=== PATIENT | female | born 1965 | race Caucasian/White ===

== ENCOUNTER 2020-02-12 22:14 | Emergency (ER) | payer MEDICAID ==
[2020-02-12] MEDS ORDERED: Sodium Chloride 0.9% 2.5 ML Syringe FLUSH PRN (23:03)
[2020-02-12] MEDS ORDERED: Sodium Chloride 0.9% 10 ML Syringe FLUSH PRN (23:03)
[2020-02-12] MEDS ORDERED: Morphine 4 MG/ML Syringe IVPUSH ONE (23:04)
[2020-02-12] MEDS ORDERED: Ondansetron 4 MG/2 ML SDV IVPUSH ONE (23:04)
--- NOTE | 2020-02-12 23:23 | EDM.PDOC ---
ED HPI GENERAL MEDICAL PROBLEM - General Chief Complaint: Abdominal Pain Stated Complaint: SICK Time Seen by Provider: 02/12/20 22:36 - History of Present Illness INITIAL COMMENTS - FREE TEXT/NARRATIVE: 54-year-old female presenting with 3 weeks of postprandial epigastric and left upper quadrant abdominal pain. It is associated with nausea and seems to occur within 30 minutes of eating. She is having a particularly bad episode at this time and rates the discomfort as 10 out of 10. She states that tonight there was a birthday alliance party and she had several pieces of pizza. She denies change in bowel habit she denies fevers or chills she denies pain in her back. She denies dysuria or hematuria. She reports prior and hysterectomy but denies any other abdominal surgery the pain is associated with nausea but she has had no emesis. Patient reports approximately 3 weeks of symptoms always after eating. Left Abdomen Pain Score (Numeric/FACES): 5 - Related Data Allergies Allergy/AdvReac Type Severity Reaction Status Date / Time No Known Allergies Allergy Verified 02/12/20 22:39 Home Meds: Home Meds Omeprazole 20 mg PO DAILY 14 Days #14 capsule. 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: Musculoskeletal History: Reports: None Neurological History: Reports: None Psychiatric History: Reports: None Endocrine/Metabolic History: Reports: None Hematologic History: Reports: None Oncologic (Cancer) History: Reports: None Dermatologic History: Reports: None - Infectious Disease History Infectious Disease History: Reports: Chicken Pox, Mumps - Past Surgical History Head Surgeries/Procedures: Reports: None Female Surgical History: Reports: Hysterectomy Other Female Surgeries/Procedures: Hysterectomy at age 27 Social & Family History - Tobacco Use Tobacco Use Status *Q: Current Every Day Tobacco User Years of Tobacco use: 40 Packs/Tins Daily: 0.5 - Caffeine Use Caffeine Use: Reports: Coffee, Energy Drinks - Recreational Drug Use Recreational Drug Use: No ED ROS GENERAL - Review of Systems Review Of Systems: See Below Free Text/Narrative/Comment: General: No fever. Skin: No rash. Eyes: No vision problems. ENT: No sore throat. Neck: No neck stiffness. Respiratory: No shortness of breath. Cardiac: No chest pain. Gastrointestinal: Per HPI Urinary: No dysuria. Musculoskeletal: No myalgias/arthralgias. Neurologic: No headache. ED EXAM, GENERAL - Physical Exam Exam: See Below Free Text/Narrative:: General Appearance: No acute distress, appears comfortable Skin: No rash HEENT: Normocephalic/atraumatic, sclera anicteric, mucous membranes moist Neck: Normal range of motion Chest and Lungs: Bilateral breath sounds, clear to auscultation Cardiovascular: Regular rate and rhythm, no murmur Abdomen: Bilateral upper quadrant tenderness without guarding or rebound Back: Normal Musculoskeletal: No edema or tenderness Neurologic: Awake, alert, no obvious deficits, moving all extremities Psychiatric: Appropriate, cooperative Course - Vital Signs Last Recorded V/S: Last Vital Signs Temp 96.5 F L 02/12/20 22:39 Pulse 86 02/12/20 22:39 Resp 20 02/12/20 22:39 BP 135/69 02/12/20 22:39 Pulse Ox 97 02/12/20 22:39 - Orders/Labs/Meds Orders: Active Orders 24 hr Category Date Time Status Sodium Chloride 0.9% [Normal Saline] 1,000 ml Med 02/13/20 00:00 Active IV .Bolus Sodium Chloride 0.9% [Saline Flush] Med 02/12/20 23:03 Active 10 ml FLUSH ASDIRECTED PRN Sodium Chloride 0.9% [Saline Flush] Med 02/12/20 23:03 Active 2.5 ml FLUSH ASDIRECTED PRN Saline Lock Insert [OM.PC] Stat Oth 02/12/20 23:03 Ordered Medication Orders Sodium Chloride (Normal Saline) 1,000 mls @ 999 mls/hr IV .Bolus ONE Stop: 02/13/20 01:00 Sodium Chloride (Saline Flush) 10 ml FLUSH ASDIRECTED PRN PRN Reason: Keep Vein Open Sodium Chloride (Saline Flush) 2.5 ml FLUSH ASDIRECTED PRN PRN Reason: Keep Vein Open Labs: Laboratory Tests 02/12/20 02/12/20 Range/Units 23:10 23:10 WBC 11.63 H (4.0-11.0) K/uL RBC 4.48 (4.30-5.90) M/uL Hgb 13.0 (12.0-16.0) g/dL Hct 40.3 (36.0-46.0) % MCV 90.0 (80.0-98.0) fL MCH 29.0 (27.0-32.0) pg MCHC 32.3 (31.0-37.0) g/dL RDW Std Deviation 46.0 (28.0-62.0) fl RDW Coeff of Marcelle 14 (11.0-15.0) % Plt Count 286 (150-400) K/uL MPV 9.10 (7.40-12.00) fL Neut % (Auto) 56.5 (48.0-80.0) % Lymph % (Auto) 32.2 (16.0-40.0) % [place] % (Auto) 7.5 (0.0-15.0) % Eos % (Auto) 3.5 (0.0-7.0) % Baso % (Auto) 0.3 (0.0-1.5) % Neut # (Auto) 6.6 H (1.4-5.7) K/uL Lymph # (Auto) 3.8 H (0.6-2.4) K/uL [place] # (Auto) 0.9 H (0.0-0.8) K/uL Eos # (Auto) 0.4 (0.0-0.7) K/uL Baso # (Auto) 0.0 (0.0-0.1) K/uL Nucleated RBC % 0.0 /100WBC Nucleated RBCs # 0 K/uL Sodium 131 L (136-145) mmol/L Potassium 3.4 L (3.5-5.1) mmol/L Chloride 104 (98-107) mmol/L Carbon Dioxide 26.4 (21.0-32.0) mmol/L BUN 21 H (7.0-18.0) mg/dL Creatinine 0.7 (0.6-1.0) mg/dL Est Cr Clr Drug Dosing 66.76 mL/min Estimated GFR (MDRD) > 60.0 ml/min Glucose 116 H (74-106) mg/dL Calcium 9.1 (8.5-10.1) mg/dL Total Bilirubin 0.1 L (0.2-1.0) mg/dL AST 14 L (15-37) IU/L ALT 30 (14-63) IU/L Alkaline Phosphatase 61 (46-116) U/L Total Protein 6.9 (6.4-8.2) g/dL Albumin 3.5 (3.4-5.0) g/dL Globulin 3.4 (2.6-4.0) g/dL Albumin/Globulin Ratio 1.0 (0.9-1.6) Lipase 241 (73-393) U/L Meds: Medications Generic Name Dose Route Start Last Admin Trade Name Freq PRN Reason Stop Dose Admin Sodium Chloride 1,000 mls @ 999 mls/hr 02/13/20 00:00 Normal Saline IV 02/13/20 01:00 .Bolus ONE Sodium Chloride 10 ml 02/12/20 23:03 Saline Flush FLUSH ASDIRECTED PRN Keep Vein Open Sodium Chloride 2.5 ml 02/12/20 23:03 Saline Flush FLUSH ASDIRECTED PRN Keep Vein Open Discontinued Medications Generic Name Dose Route Start Last Admin Trade Name Freq PRN Reason Stop Dose Admin Al Hydroxide/Mg Hydroxide 15 0 ml 02/13/20 00:22 ml/ Lidocaine HCl 5 ml PO 02/13/20 00:23 ONETIME ONE Morphine Sulfate 4 mg 02/12/20 23:04 02/12/20 23:19 Morphine IVPUSH 02/12/20 23:05 4 mg ONETIME ONE Administration Ondansetron HCl 4 mg 02/12/20 23:04 02/12/20 23:19 Zofran IVPUSH 02/12/20 23:05 4 mg ONETIME ONE Administration Departure - Departure Time of Disposition: 00:28 Disposition: Home, Self-Care 01 Condition: Good Clinical Impression: Gastritis - Discharge Information *PRESCRIPTION DRUG MONITORING PROGRAM REVIEWED*: Not Applicable *COPY OF PRESCRIPTION DRUG MONITORING REPORT IN PATIENT VIOLETTE: Not Applicable Prescriptions: Sucralfate [Carafate] 1 gm PO TID 7 Days #42 tablet Omeprazole 20 mg PO DAILY 14 Days #14 capsule. Instructions: Gastritis, Adult, [id number] Referrals: [facility] [Outside] - 1 Week Forms: ED Department Discharge Additional Instructions: I encourage you to follow-up with the [facility] to establish primary care and for follow-up of your abdominal pain. The following information is given to patients seen in the emergency department who are being discharged to home. This information is to outline your options for follow-up care. We provide all patients seen in our emergency department with a follow-up referral. The need for follow-up, as well as the timing and circumstances, are variable depending upon the specifics of your emergency department visit. If you don't have a primary care physician on staff, we will provide you with a referral. We always advise you to contact your personal physician following an emergency department visit to inform them of the circumstance of the visit and for follow-up with them and/or the need for any referrals to a consulting specialist. The emergency department will also refer you to a specialist when appropriate. This referral assures that you have the opportunity for follow-up care with a specialist. All of these measure are taken in an effort to provide you with optimal care, which includes your follow-up. Under all circumstances we always encourage you to contact your private physician who remains a resource for coordinating your care. When calling for follow-up care, please make the office aware that this follow-up is from your recent emergency room visit. If for any reason you are refused follow-up, please contact the [facility] Emergency Department at and asked to speak to the emergency department charge nurse. Sepsis Event Note (ED) - Evaluation Sepsis Screening Result: No Definite Risk - Focused Exam Vital Signs: Vital Signs Temp Pulse Resp BP Pulse Ox 02/12/20 22:39 96.5 F L 86 20 135/69 97 - My Orders Last 24 Hours: My Active Orders 02/12/20 23:03 Sodium Chloride 0.9% [Saline Flush] 10 ml FLUSH ASDIRECTED PRN Sodium Chloride 0.9% [Saline Flush] 2.5 ml FLUSH ASDIRECTED PRN Saline Lock Insert [OM.PC] Stat 02/13/20 00:00 Sodium Chloride 0.9% [Normal Saline] 1,000 ml IV .Bolus - Assessment/Plan Last 24 Hours: My Active Orders 02/12/20 23:03 Sodium Chloride 0.9% [Saline Flush] 10 ml FLUSH ASDIRECTED PRN Sodium Chloride 0.9% [Saline Flush] 2.5 ml FLUSH ASDIRECTED PRN Saline Lock Insert [OM.PC] Stat 02/13/20 00:00 Sodium Chloride 0.9% [Normal Saline] 1,000 ml IV .Bolus Assessment:: 54-year-old female presenting with signs and symptoms most consistent with cholelithiasis versus choledocho lithiasis versus acute cholecystitis. Pancreatitis considered as well but felt less likely peptic ulcer disease also possible but given the worsening after fatty meals would favor biliary pathology. However if biliary work-up is negative then would treat for gastritis/PUD. ACS carefully considered but there is no chest pain with this the pain is nonexertional and I do not have a concern for ACS nor PE. Inferior pulmonary process possible I think is unlikely but chest x-ray ordered to help exclude this. Morphine Zofran for symptoms and will reassess. 0030: Patient's labs are notable only for minimal hyponatremia. Renal function is good patient's ultrasound is normal chest x-ray normal. Given this I would favor gastritis. Patient given a GI cocktail here discharge on 2 weeks of omeprazole and Carafate patient will follow up with primary care clinic.
[2020-02-12 23:35] LABS: BLOOD UREA NITROGEN,BUN 21 mg/dL (7.0-18.0); CARBON DIOXIDE,CO2 26.4 mmol/L (21.0-32.0); CHLORIDE,CL 104 mmol/L (98-107); GLUCOSE RANDOM 116 mg/dL (74-106); LIPASE 241 U/L (73-393); POTASSIUM,K 3.4 mmol/L (3.5-5.1); SODIUM,NA 131 mmol/L (136-145)
--- NOTE | 2020-02-12 23:50 | CR ---
Indication: Bilateral upper quadrant pain Technique: Chest 2 views Comparison: None Findings/Impression: Cardiovascular and mediastinum: Heart size and vasculature are normal in caliber and appearance. Mediastinum is within normal limits. Lungs and pleural spaces: Lungs are clear. No sign of infiltrate or mass. No sign of pleural effusion. No pneumothorax. Bones and soft tissues: No significant findings. Dictated by Handy Andrade MD @ Feb 12 2020 11:49PM Signed by Dr. Handy Andrade @ Feb 12 2020 11:50PM
[2020-02-13] MEDS ORDERED: Sodium Chloride 0.9% 1,000 ML IV ONE
--- NOTE | 2020-02-13 00:18 | US ---
INDICATION: Postprandial upper abdominal pain TECHNIQUE: Ultrasound abdomen limited. Sonographic images of the right upper quadrant were obtained using evans-scale and color Doppler images. COMPARISON: None FINDINGS: Liver: Mildly enlarged and diffusely increased in echogenicity without focal lesion. Gallbladder: No stones or sludge. Normal wall thickness. No pericholecystic fluid. Common bile duct: 6 mm. Pancreas: Partially obscured by bowel gas without discrete lesion. Right kidney: Normal in size. Normal echotexture and cortex. No masses, stones, or hydronephrosis. Vasculature: Proximal abdominal aorta and IVC are normal. IMPRESSION: 1. No evidence of cholelithiasis or cholecystitis. 2. Mild hepatomegaly with fatty infiltration of the liver. Dictated by Handy Andrade MD @ Feb 13 2020 12:13AM Signed by Dr. Handy Andrade @ Feb 13 2020 12:16AM
[2020-02-13] MEDS ORDERED: Alum Hydrox/Mag Hydrox/Simeth 15 ML, Lidocaine 2% 5 ML PO ONE ×2 (00:22)
== END 2020-02-13 01:25 | disposition home or self-care (01) ==
LOC: MW.ED 22:14
DX: K29.70 Gastritis, unspecified, without bleeding (principal); F17.210 Nicotine dependence, cigarettes, uncomplicated; Z79.899 Other long term (current) drug therapy
CPT/HCPCS: 36415; 71046; 76705; 80053; 83690; 85025; 96374; 96375; 99284; A9270; J2270; J2405; J7030; 99283

== ENCOUNTER 2020-02-14 20:32 | Emergency (ER) | payer MEDICAID ==
[2020-02-14] MEDS ORDERED: Morphine 4 MG/ML Syringe IVPUSH ONE (21:07)
[2020-02-14] MEDS ORDERED: Ondansetron 4 MG/2 ML SDV IVPUSH ONE (21:07)
[2020-02-14] MEDS ORDERED: Lactated Ringers 1,000 ML IV ONE (21:07)
--- NOTE | 2020-02-14 21:09 | EDM.PDOC ---
ED [facility] GENERAL MEDICAL PROBLEM - General Chief Complaint: Abdominal Pain Stated Complaint: ABDOMINAL PAIN Time Seen by Provider: 02/14/20 21:01 Source of Information: Reports: Patient History Limitations: Reports: No Limitations - History of Present Illness INITIAL COMMENTS - FREE TEXT/NARRATIVE: 54-year-old female with no past medical history returns for worsening abdominal pain. She was seen here on 02/11 for her abdominal pain. Her pain is localized to the left upper quadrant, described as dull pressure that waxes and wanes over the last 3 weeks. Pain has worsened over the last 3 days. Pain is nonradiating. Associated with nausea, urinary frequency, abdominal distention. She denies fever, chills, chest pain, shortness of breath, vomiting, diarrhea, dysuria. ROS: A 10-point review of systems, other than pertinent positives and negatives as stated per HPI, is otherwise negative Past medical history: No additional pertinent history Past Surgical history: No additional pertinent history Social history: No additional pertinent history Family history: No additional pertinent history PHYSICAL EXAM General: AOx4, GCS = 15, mild distress HEENT: dry mucous membrane Neck: supple, no meningismus, no Kernig or Brudzinski Cardiac: S1S2 RRR Respiratory: CTAB, no crackles or rales, no wheezing Abdomen: Soft, nontender, no rebound or guarding, nondistended, no pulsatile mass. Back: no CVAT Musculoskeletal: NVI distally, no deformity Neuro: No focal deficits, CN 2 - 12 WNL. left upper adomen Pain Score (Numeric/FACES): 6 - Related Data Allergies Allergy/AdvReac Type Severity Reaction Status Date / Time No Known Allergies Allergy Verified 02/14/20 20:44 Home Meds: Home Meds Omeprazole 20 mg PO DAILY 14 Days #14 capsule. 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 Cardiovascular History: Reports: None Respiratory History: Reports: None Gastrointestinal History: Reports: None Genitourinary History: Reports: None [employer] History: Reports: Musculoskeletal History: Reports: None Neurological History: Reports: None Psychiatric History: Reports: None Endocrine/Metabolic History: Reports: None Hematologic History: Reports: None Oncologic (Cancer) History: Reports: None Dermatologic History: Reports: None - Infectious Disease History Infectious Disease History: Reports: Chicken Pox, Mumps - Past Surgical History Head Surgeries/Procedures: Reports: None HEENT Surgical History: Reports: Tonsillectomy Female Surgical History: Reports: Section, Hysterectomy Other Female Surgeries/Procedures: Hysterectomy at age 27 Social & Family History - Family History Family Medical History: No Pertinent Family History - Tobacco Use Tobacco Use Status *Q: Current Every Day Tobacco User Years of Tobacco use: 40 Packs/Tins Daily: 0.5 - Caffeine Use Caffeine Use: Reports: Coffee, Energy Drinks - Recreational Drug Use Recreational Drug Use: No ED ROS GENERAL - Review of Systems Review Of Systems: See Below (see dictation) ED EXAM, GI/ABD - Physical Exam Exam: See Below (see dictation) #1 Interpretation Comparison: NA - No Prior EKG EKG Interpretation Comments: Heart rate = 68 bpm, normal sinus rhythm, normal QRS interval, no STEMI. EKG and rhythm strip interpreted by me at 2131 Course - Vital Signs Last Recorded V/S: Last Vital Signs Temp 97.3 F 02/14/20 20:41 Pulse 86 02/14/20 20:41 Resp 18 02/14/20 20:41 BP 146/64 H 02/14/20 20:41 Pulse Ox 95 02/14/20 20:41 - Orders/Labs/Meds Orders: Active Orders 24 hr Category Date Time Status EKG Documentation Completion [RC] STAT Care 02/14/20 21:04 Active Labs: Laboratory Tests 02/14/20 02/14/20 02/14/20 Range/Units 20:50 20:50 21:46 WBC 12.31 H (4.0-11.0) K/uL RBC 4.57 (4.30-5.90) M/uL Hgb 13.5 (12.0-16.0) g/dL Hct 41.1 (36.0-46.0) % MCV 89.9 (80.0-98.0) fL MCH 29.5 (27.0-32.0) pg MCHC 32.8 (31.0-37.0) g/dL RDW Std Deviation 45.2 (28.0-62.0) fl RDW Coeff of Marcelle 14 (11.0-15.0) % Plt Count 279 (150-400) K/uL MPV 9.10 (7.40-12.00) fL Neut % (Auto) 58.0 (48.0-80.0) % Lymph % (Auto) 31.4 (16.0-40.0) % [place] % (Auto) 6.4 (0.0-15.0) % Eos % (Auto) 3.7 (0.0-7.0) % Baso % (Auto) 0.5 (0.0-1.5) % Neut # (Auto) 7.1 H (1.4-5.7) K/uL Lymph # (Auto) 3.9 H (0.6-2.4) K/uL [place] # (Auto) 0.8 (0.0-0.8) K/uL Eos # (Auto) 0.5 (0.0-0.7) K/uL Baso # (Auto) 0.1 (0.0-0.1) K/uL Nucleated RBC % 0.0 /100WBC Nucleated RBCs # 0 K/uL Sodium 142 (136-145) mmol/L Potassium 4.1 (3.5-5.1) mmol/L Chloride 106 (98-107) mmol/L Carbon Dioxide 25.4 (21.0-32.0) mmol/L BUN 17 (7.0-18.0) mg/dL Creatinine 0.8 (0.6-1.0) mg/dL Est Cr Clr Drug Dosing 58.41 mL/min Estimated GFR (MDRD) > 60.0 ml/min Glucose 115 H (74-106) mg/dL Calcium 9.2 (8.5-10.1) mg/dL Total Bilirubin 0.2 (0.2-1.0) mg/dL AST 22 (15-37) IU/L ALT 46 (14-63) IU/L Alkaline Phosphatase 59 (46-116) U/L Troponin I < 0.050 (0.000-0.056) ng/mL Total Protein 7.2 (6.4-8.2) g/dL Albumin 3.7 (3.4-5.0) g/dL Globulin 3.5 (2.6-4.0) g/dL Albumin/Globulin Ratio 1.1 (0.9-1.6) Lipase 274 (73-393) U/L Urine Color YELLOW Urine Appearance CLEAR Urine pH 7.5 (5.0-8.0) Ur Specific [place] 1.020 (1.001-1.035) Urine Protein NEGATIVE (NEGATIVE) mg/dL Urine Glucose (UA) NEGATIVE (NEGATIVE) mg/dL Urine Ketones NEGATIVE (NEGATIVE) mg/dL Urine Occult Blood TRACE-INTACT H (NEGATIVE) Urine Nitrite NEGATIVE (NEGATIVE) Urine Bilirubin NEGATIVE (NEGATIVE) Urine Urobilinogen 0.2 (<2.0) EU/dL Ur Leukocyte Esterase NEGATIVE (NEGATIVE) Urine RBC 1-3 (0-2/HPF) Urine WBC 0-1 (0-5/HPF) Ur Epithelial Cells RARE (NONE-FEW) Urine Bacteria RARE (NEGATIVE) Meds: Medications Discontinued Medications Generic Name Dose Route Start Last Admin Trade Name Freq PRN Reason Stop Dose Admin Lactated Ringer's 1,000 mls @ 999 mls/min 02/14/20 21:07 02/14/20 21:25 Ringers, Lactated IV 02/14/20 21:08 999 mls/min .BOLUS ONE Administration Iopamidol 100 ml 02/14/20 23:00 02/14/20 23:01 Isovue Multipack-370 (76%) IVPUSH 02/14/20 23:01 100 ml ONETIME STA Administration Morphine Sulfate 4 mg 02/14/20 21:07 02/14/20 21:29 Morphine IVPUSH 02/14/20 21:08 4 mg ONETIME ONE Administration Ondansetron HCl 4 mg 02/14/20 21:07 02/14/20 21:26 Zofran IVPUSH 02/14/20 21:08 4 mg ONETIME ONE Administration - Re-Assessments/Exams Free Text/Narrative Re-Assessment/Exam: 02/14/20 23:02 I reassessed the patient, her abdomino pain improved after IV fluids, Zofran, morphine. 02/15/20 00:42 After prolonged observation in the ER, the patient improved and is currently stable for discharge. I performed a repeat exam and did not appreciate new abnormal findings. Patient exhibits normal vital signs and has a normal gait on road test. I advised the patient to return to the ER for reevaluation if symptoms worsened, including fever, worsening pain, or any other worrisome symptoms. She already has a prescription for Carafate and PPI. I instructed the patient to follow up with their PCP within 2-3 days. MEDICAL DECISION MAKING: I reviewed the patients past medical records, lab and radiographic findings. I discussed the case with the patient. My differential diagnosis included: Gastritis, esophagitis, PUD. Departure - Departure Time of Disposition: 00:43 Disposition: Home, Self-Care 01 Condition: Good Clinical Impression: Esophagitis - Discharge Information *PRESCRIPTION DRUG MONITORING PROGRAM REVIEWED*: Not Applicable *COPY OF PRESCRIPTION DRUG MONITORING REPORT IN PATIENT VIOLETTE: Not Applicable Instructions: Esophagitis Referrals: PCP,None [Primary Care Provider] - Forms: ED Department Discharge Additional Instructions: The need for follow-up, as well as the timing and circumstances, are variable depending upon the specifics of your emergency department visit. If you don't have a primary care physician on staff, we will provide you with a referral. We always advise you to contact your personal physician following an emergency department visit to inform them of the circumstance of the visit and for follow-up with them and/or the need for any referrals to a consulting specialist. The emergency department will also refer you to a specialist when appropriate. This referral assures that you have the opportunity for follow-up care with a specialist. All of these measure are taken in an effort to provide you with optimal care, which includes your follow-up. Under all circumstances we always encourage you to contact your private physician who remains a resource for coordinating your care. When calling for follow-up care, please make the office aware that this follow-up is from your recent emergency room visit. If for any reason you are refused follow-up, please contact the [facility] Emergency Department at and asked to speak to the emergency department charge nurse. If you do not have a primary care doctor, please follow up with the clinics below within 3-5 days. [facility] - Primary Care [address] [place] [id number] [facility] [address] [place] [id number] Sepsis Event Note (ED) - Evaluation Sepsis Screening Result: No Definite Risk - Focused Exam Vital Signs: Vital Signs Temp Pulse Resp BP Pulse Ox 02/14/20 20:41 97.3 F 86 18 146/64 H 95 - My Orders Last 24 Hours: My Active Orders 02/14/20 21:04 EKG Documentation Completion [RC] STAT - Assessment/Plan Last 24 Hours: My Active Orders 02/14/20 21:04 EKG Documentation Completion [RC] STAT
[2020-02-14 21:35] LABS: BLOOD UREA NITROGEN,BUN 17 mg/dL (7.0-18.0); CARBON DIOXIDE,CO2 25.4 mmol/L (21.0-32.0); CHLORIDE,CL 106 mmol/L (98-107); GLUCOSE RANDOM 115 mg/dL (74-106); LIPASE 274 U/L (73-393); POTASSIUM,K 4.1 mmol/L (3.5-5.1); SODIUM,NA 142 mmol/L (136-145)
[2020-02-14] MEDS ORDERED: Iopamidol 755 MG/ML 500 ML Multipack Bottle IVPUSH STA (23:00)
--- NOTE | 2020-02-14 23:30 | CT ---
INDICATION: Left upper quadrant pain TECHNIQUE: CT abdomen and pelvis acquired with IV contrast. 100 mL of Isovue 370 administered. COMPARISON: None available FINDINGS: Lower chest: Apparent slight prominence of the distal esophageal wall. Liver: Hepatic steatosis. Spleen: Mild splenomegaly measuring 13.9 cm anteroposteriorly Pancreas: Unremarkable. Gallbladder and bile ducts: Possible gallbladder sludge. Adrenal glands: A 5.0 x 2.7 x 3.8 cm soft tissue and fat attenuation right adrenal mass consistent with a myelolipoma. A 1.6 x 1.3 cm left adrenal nodule on image 32, and a 1.5 x 1.3 cm left adrenal nodule on image 37, indeterminate. Kidneys: No hydronephrosis. Left renal cysts measuring up to 2.9 cm in the upper pole, and a subcentimeter right renal lower pole low-density lesion, statistically a small cyst as well. GI tract: Slight prominence of the distal gastric antral wall despite relative distension. No bowel obstruction. A normal appendix. A small metallic density within the cecum, ingested versus a biopsy clip. No significant pericolonic changes. Vascular structures: Unremarkable. Lymph nodes: Unremarkable. Miscellaneous: No significant free fluid or free air. Pelvic Organs: Hysterectomy. No discrete bladder abnormality seen. Bones: Bilateral L5 spondylolysis with grade 1 anterolisthesis of L5 on S1. IMPRESSION: No evidence of appendicitis, diverticulitis or bowel obstruction. Slight prominence of the distal gastric antral wall despite distension. Correlate clinically to exclude PUD. Slight distal esophageal wall prominence. Correlate for mild esophagitis. Hepatic steatosis. Mild splenomegaly. A 5 cm right adrenal myelolipoma. Left adrenal nodules, indeterminate. Follow-up with adrenal CT or MRI. Hepatic steatosis. Mild splenomegaly. Please note that all CT scans at this facility use dose modulation, iterative reconstruction, and/or weight-based dosing when appropriate to reduce radiation dose to as low as reasonably achievable. Dictated by Luther Gomez MD @ Feb 14 2020 11:14PM Signed by Dr. Luther Gomez @ Feb 14 2020 11:28PM
== END 2020-02-15 00:50 | disposition home or self-care (01) ==
LOC: MW.ED 20:32
DX: K20.90 Esophagitis, unspecified without bleeding (principal); F17.210 Nicotine dependence, cigarettes, uncomplicated
CPT/HCPCS: 36415; 74177; 80053; 81001; 83690; 84484; 85025; 93005; 96374; 96375; 99284; J2270; J2405; J7120; Q9967; 93010; 99283

== ENCOUNTER 2020-02-17 13:39 | Emergency (ER) | payer MEDICAID ==
[2020-02-17] MEDS ORDERED: Sodium Chloride 0.9% 10 ML Syringe FLUSH PRN (14:22)
[2020-02-17] MEDS ORDERED: Sodium Chloride 0.9% 2.5 ML Syringe FLUSH PRN (14:22)
[2020-02-17] MEDS ORDERED: Ondansetron 4 MG/2 ML SDV IVPUSH ONE (14:22)
[2020-02-17] MEDS ORDERED: Morphine 2 MG/ML SYRINGE IVPUSH ONE (14:23)
[2020-02-17] MEDS ORDERED: Alum Hydrox/Mag Hydrox/Simeth 15 ML, Metoclopramide 5 MG, Lidocaine 2% 5 ML PO ONE ×3 (14:36)
[2020-02-17] MEDS ORDERED: Pantoprazole 80 MG in Sodium Chloride 0.9% 100 ML IV SCH (14:45)
--- NOTE | 2020-02-17 14:46 | PCM.SN.2 ---
- Free Text/Narrative Note: EKG Time 236pm Rate 74 NSR No KAILA u waves present
--- NOTE | 2020-02-17 15:07 | EDM.PDOC ---
ED HPI GENERAL MEDICAL PROBLEM - General Chief Complaint: Back Pain or Injury Stated Complaint: STOMACH PAIN Time Seen by Provider: 02/17/20 13:43 Source of Information: Reports: Patient History Limitations: Reports: No Limitations - History of Present Illness INITIAL COMMENTS - FREE TEXT/NARRATIVE: HISTORY AND PHYSICAL: History of present illness: Patient is a 54-year-old female who presents to the ED today with concern of left upper quadrant pain, nausea, and pain that radiates to her back. Patient describes the pain as a tightening dull sensation and states that the pain is across her entire back "under her bra line." Patient states that when she takes a big deep breath then she has pain of her left upper quadrant that radiates to her back. Patient states that she has been taking the medication from her prior ER visits as prescribed and states that she has an appointment on Tuesday with Thania Christie in the clinic for further evaluation but today the pain ra diating into the back. Patient states that she does have worsening symptoms after eating but also has an increase in pain "randomly" and constantly has a dull pain of her LUQ. Patient states that the pain is not necessarily worse since her prior ED visits, but has changed as it now radiates into her back with it did not prior. Patient states she was reading her discharge instructions from her prior ER visit and was told that if she had pain radiating to her back to come back to the emergency room to be evaluated. Patient denies any loss or retention of bowel bladder function or saddle anesthesia. Patient was seen in the ED on 02/12/2020 and again on 02/14/2020 for her left upper quadrant abdominal pain. She did receive extensive work up including RUQ US and abd/pelvic CT scan and was treated for gastritis/ possible PUD. Patient denies fever, chills, chest pain, shortness of breath, or cough. Denies headache, neck stiff ness, change in vision, syncope, or near syncope. Denies vomiting, diarrhea, constipation, or dysuria. Has not noted any blood in urine or stool. Patient has been eating and drinking appropriately. Review of systems: As per history of present illness and below otherwise all systems reviewed and negative. Past medical history: As per history of present illness and as reviewed below otherwise noncontributory. Surgical history: As per history of present illness and as reviewed below otherwise noncontributory. Social history: See social history for further information Family history: As per history of present illness and as reviewed below otherwise noncontributory. Physical exam: General: Patient is alert, oriented, and in no acute distress. Patient sitting on exam table and does appear mildly uncomfortable holding LUQ. HEENT: Atraumatic, normocephalic, pupils equal and reactive bilaterally, negative for conjunctival pallor or scleral icterus, mucous membranes moist, TMs normal bilaterally, throat clear, neck supple, nontender, trachea midline. No drooling or trismus noted. No meningeal signs. No hot potato voice noted. Lungs: Clear to auscultation, breath sounds equal bilaterally, chest nontender. Heart: S1S2, regular rate and rhythm without overt murmur Abdomen: Obese, soft, nondistended, mild-moderate LUQ tenderness without guarding, negative mortensen sign, negative rebound, no pulsatile mass. Negative for masses or hepatosplenomegaly. Negative for costovertebral tenderness. Pelvis: Stable nontender. Genitourinary: Deferred. Rectal: Deferred. Skin: Intact, warm, dry. No lesions or rashes noted. Extremities: No obvious deformity of the complete spine. No step-offs, crepitus, or point tenderness to palpation of the complete spine. Patient has full range of motion of the complete spine without pain or difficulty. Patient was able ambulate today in the ED without difficulty. Otherwise, Atraumatic, negative for cords or calf pain. Neurovascular unremarkable. Neuro: Awake, alert, oriented. Cranial nerves II through XII unremarkable. Cerebellum unremarkable. Motor and sensory unremarkable throughout. Exam nonfocal. Notes: Dr. Burks directly involved in patient care. Patient has had a recent abd/pelvic CT scan w cont and RUQ US. The right upper quadrant ultrasound was performed on 02/12/2020 and shows no evidence of cholelithiasis or cholecystitis with mild hepatomegaly and fatty infiltration of the liver. Patient also had a recent abdominal pelvic CT scan with contrast done on 02/14/2020 which showed no evidence of appendicitis, diverticulitis, or bowel obstruction. Slight prominence of the distal gastric antral wall despite distention. Correlate clinically to exclude peptic ulcer disease. Slightly distended esophageal wall prominence. Correlate for mild esophagitis and a 5 cm right adrenal myolipoma. Left adrenal nodules which are indeterminant. Hepatic steatosis. Mild splenomegaly. I do not see a need to repeat imaging at this time as patient's symptoms have not progressed/advanced from prior obtained images. Upon reexamination of patient, she is more comfortable with therapeutics given today in the ED. She does have an appointment in 2 days with a primary care provider in the clinic for further evaluation and discussed the importance of this follow up. Also discussed with patient the importance for follow-up with her PCP for all incidental findings her imaging. Also discussed with patient following up with a general surgery for EGD consideration. Patient has been started on medication regime for gastritis at prior ED visit and instructed the importance of continuing these medications until reval by her PCP. Signs and symptoms are prompt return to the ED thoroughly discussed with patient. Voices understanding and is agreeable to plan of care. Denies any further questions or concerns at this time. Diagnostics: EKG, CBC, CMP, UA, CXR, Trop, Lipase, Ddimer, LDH, COVID, Mononucleosis, Therapeutics: Zofran, Protonix, GI cocktail, Morphine Prescription: None Impression: LUQ pain, unspecified Gastritis Plan: 1. Continue to take the medications that you were given at your prior ED visit until further evaluation by your primary care provider. 2. You can take Tylenol as directed for pain and discomfort. I would minimize the use of NSAIDs such as ibuprofen, Aleve, naproxen, or aspirin for pain management until you are further evaluated by your primary care provider. 3. Follow-up with a primary care provider as discussed. Return to the ED as needed and as discussed. Definitive disposition and diagnosis as appropriate pending reevaluation and review of above. Bilateral Middle Back Pain Score (Numeric/FACES): 7 - Related Data Allergies Allergy/AdvReac Type Severity Reaction Status Date / Time No Known Allergies Allergy Verified 02/17/20 13:45 Home Meds: Home Meds Omeprazole 20 mg PO DAILY 14 Days #14 capsule. 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 Cardiovascular History: Reports: None Respiratory History: Reports: None Gastrointestinal History: Reports: GERD Genitourinary History: Reports: None TODDLER NANNY History: Reports: Musculoskeletal History: Reports: None Neurological History: Reports: None Psychiatric History: Reports: None Endocrine/Metabolic History: Reports: None Hematologic History: Reports: None Oncologic (Cancer) History: Reports: None Dermatologic History: Reports: None - Infectious Disease History Infectious Disease History: Reports: Chicken Pox, Mumps - Past Surgical History Head Surgeries/Procedures: Reports: None HEENT Surgical History: Reports: Tonsillectomy Female Surgical History: Reports: Section, Hysterectomy Other Female Surgeries/Procedures: Hysterectomy at age 27 Social & Family History - Family History Family Medical History: No Pertinent Family History - Tobacco Use Tobacco Use Status *Q: Current Every Day Tobacco User Years of Tobacco use: 40 Packs/Tins Daily: 0.5 - Caffeine Use Caffeine Use: Reports: Coffee, Energy Drinks - Recreational Drug Use Recreational Drug Use: No ED ROS GENERAL - Review of Systems Review Of Systems: Comprehensive ROS is negative, except as noted in HPI. ED EXAM, GENERAL - Physical Exam Exam: See Below (see dictation) Course - Vital Signs Last Recorded V/S: Last Vital Signs Temp 96.6 F L 02/17/20 16:19 Pulse 67 02/17/20 16:19 Resp 16 02/17/20 16:19 BP 125/69 02/17/20 16:19 Pulse Ox 95 02/17/20 16:19 - Orders/Labs/Meds Orders: Active Orders 24 hr Category Date Time Status CORONAVIRUS COVID-19 PCR PHL Stat Lab 02/17/20 15:08 Received Saline Lock Insert [OM.PC] Stat Oth 02/17/20 14:22 Ordered Labs: Laboratory Tests 02/17/20 02/17/20 02/17/20 Range/Units 14:34 14:34 14:34 WBC 12.04 H (4.0-11.0) K/uL RBC 4.91 (4.30-5.90) M/uL Hgb 14.6 (12.0-16.0) g/dL Hct 44.0 (36.0-46.0) % MCV 89.6 (80.0-98.0) fL MCH 29.7 (27.0-32.0) pg MCHC 33.2 (31.0-37.0) g/dL RDW Std Deviation 44.7 (28.0-62.0) fl RDW Coeff of Marcelle 14 (11.0-15.0) % Plt Count 265 (150-400) K/uL MPV 9.00 (7.40-12.00) fL Neut % (Auto) 63.9 (48.0-80.0) % Lymph % (Auto) 25.2 (16.0-40.0) % [place] % (Auto) 7.1 (0.0-15.0) % Eos % (Auto) 3.4 (0.0-7.0) % Baso % (Auto) 0.4 (0.0-1.5) % Neut # (Auto) 7.7 H (1.4-5.7) K/uL Lymph # (Auto) 3.0 H (0.6-2.4) K/uL [place] # (Auto) 0.9 H (0.0-0.8) K/uL Eos # (Auto) 0.4 (0.0-0.7) K/uL Baso # (Auto) 0.1 (0.0-0.1) K/uL Nucleated RBC % 0.0 /100WBC Nucleated RBCs # 0 K/uL D-Dimer, Quantitative 0.29 (0.0-0.50) mg/L FEU Sodium 140 (136-145) mmol/L Potassium 4.2 (3.5-5.1) mmol/L Chloride 106 (98-107) mmol/L Carbon Dioxide 25.1 (21.0-32.0) mmol/L BUN 16 (7.0-18.0) mg/dL Creatinine 0.8 (0.6-1.0) mg/dL Est Cr Clr Drug Dosing 58.41 mL/min Estimated GFR (MDRD) > 60.0 ml/min Glucose 112 H (74-106) mg/dL Calcium 9.0 (8.5-10.1) mg/dL Total Bilirubin 0.2 (0.2-1.0) mg/dL AST 21 (15-37) IU/L ALT 44 (14-63) IU/L Alkaline Phosphatase 60 (46-116) U/L Lactate Dehydrogenase 213 (81-234) U/L Troponin I < 0.050 (0.000-0.056) ng/mL Total Protein 7.4 (6.4-8.2) g/dL Albumin 3.8 (3.4-5.0) g/dL Globulin 3.6 (2.6-4.0) g/dL Albumin/Globulin Ratio 1.1 (0.9-1.6) Lipase 211 (73-393) U/L Urine Color Urine Appearance Urine pH (5.0-8.0) Ur Specific [place] (1.001-1.035) Urine Protein (NEGATIVE) mg/dL Urine Glucose (UA) (NEGATIVE) mg/dL Urine Ketones (NEGATIVE) mg/dL Urine Occult Blood (NEGATIVE) Urine Nitrite (NEGATIVE) Urine Bilirubin (NEGATIVE) Urine Urobilinogen (<2.0) EU/dL Ur Leukocyte Esterase (NEGATIVE) Urine RBC (0-2/HPF) Urine WBC (0-5/HPF) Ur Epithelial Cells (NONE-FEW) Urine Bacteria (NEGATIVE) Monoscreen (NEG) SARS CoV-2 RNA Rapid ADAL (NEGATIVE) 02/17/20 02/17/20 02/17/20 Range/Units 14:34 14:58 15:08 WBC (4.0-11.0) K/uL RBC (4.30-5.90) M/uL Hgb (12.0-16.0) g/dL Hct (36.0-46.0) % MCV (80.0-98.0) fL MCH (27.0-32.0) pg MCHC (31.0-37.0) g/dL RDW Std Deviation (28.0-62.0) fl RDW Coeff of Marcelle (11.0-15.0) % Plt Count (150-400) K/uL MPV (7.40-12.00) fL Neut % (Auto) (48.0-80.0) % Lymph % (Auto) (16.0-40.0) % [place] % (Auto) (0.0-15.0) % Eos % (Auto) (0.0-7.0) % Baso % (Auto) (0.0-1.5) % Neut # (Auto) (1.4-5.7) K/uL Lymph # (Auto) (0.6-2.4) K/uL [place] # (Auto) (0.0-0.8) K/uL Eos # (Auto) (0.0-0.7) K/uL Baso # (Auto) (0.0-0.1) K/uL Nucleated RBC % /100WBC Nucleated RBCs # K/uL D-Dimer, Quantitative (0.0-0.50) mg/L FEU Sodium (136-145) mmol/L Potassium (3.5-5.1) mmol/L Chloride (98-107) mmol/L Carbon Dioxide (21.0-32.0) mmol/L BUN (7.0-18.0) mg/dL Creatinine (0.6-1.0) mg/dL Est Cr Clr Drug Dosing mL/min Estimated GFR (MDRD) ml/min Glucose (74-106) mg/dL Calcium (8.5-10.1) mg/dL Total Bilirubin (0.2-1.0) mg/dL AST (15-37) IU/L ALT (14-63) IU/L Alkaline Phosphatase (46-116) U/L Lactate Dehydrogenase (81-234) U/L Troponin I (0.000-0.056) ng/mL Total Protein (6.4-8.2) g/dL Albumin (3.4-5.0) g/dL Globulin (2.6-4.0) g/dL Albumin/Globulin Ratio (0.9-1.6) Lipase (73-393) U/L Urine Color YELLOW Urine Appearance CLEAR Urine pH 5.0 (5.0-8.0) Ur Specific [place] >= 1.030 (1.001-1.035) Urine Protein NEGATIVE (NEGATIVE) mg/dL Urine Glucose (UA) NEGATIVE (NEGATIVE) mg/dL Urine Ketones NEGATIVE (NEGATIVE) mg/dL Urine Occult Blood SMALL H (NEGATIVE) Urine Nitrite NEGATIVE (NEGATIVE) Urine Bilirubin NEGATIVE (NEGATIVE) Urine Urobilinogen 0.2 (<2.0) EU/dL Ur Leukocyte Esterase NEGATIVE (NEGATIVE) Urine RBC 1-3 (0-2/HPF) Urine WBC 0-2 (0-5/HPF) Ur Epithelial Cells OCCASIONAL (NONE-FEW) Urine Bacteria NOT SEEN (NEGATIVE) Monoscreen NEGATIVE (NEG) SARS CoV-2 RNA Rapid ADAL NEGATIVE (NEGATIVE) Meds: Medications Discontinued Medications Generic Name Dose Route Start Last Admin Trade Name Freq PRN Reason Stop Dose Admin Al Hydroxide/Mg Hydroxide 15 0 ml 02/17/20 14:36 02/17/20 14:52 ml/ Metoclopramide HCl 5 mg/ PO 02/17/20 14:37 1 each Lidocaine HCl 5 ml ONETIME ONE Administration Pantoprazole Sodium 80 mg/ 100 mls @ 10 mls/hr 02/17/20 14:45 Sodium Chloride IV .Continuous BILLY Pantoprazole Sodium 80 mg/ 20 mls @ 420 mls/hr 02/17/20 15:17 02/17/20 15:30 Sodium Chloride IVPUSH 02/17/20 15:19 Not Given ONETIME ONE Pantoprazole Sodium 80 mg/ 20 mls @ 420 mls/hr 02/17/20 15:21 02/17/20 15:40 Sodium Chloride IVPUSH 02/17/20 15:23 420 mls/hr ONETIME ONE Administration Morphine Sulfate 2 mg 02/17/20 14:23 02/17/20 14:42 Morphine IVPUSH 02/17/20 14:24 2 mg ONETIME ONE Administration Ondansetron HCl 4 mg 02/17/20 14:22 02/17/20 14:42 Zofran IVPUSH 02/17/20 14:23 4 mg ONETIME ONE Administration Sodium Chloride 10 ml 02/17/20 14:22 02/17/20 14:42 Saline Flush FLUSH 10 ml ASDIRECTED PRN Administration Keep Vein Open Sodium Chloride 2.5 ml 02/17/20 14:22 02/17/20 14:42 Saline Flush FLUSH 2.5 ml ASDIRECTED PRN Administration Keep Vein Open Departure - Departure Time of Disposition: 16:03 Disposition: Home, Self-Care 01 Clinical Impression: Left upper quadrant abdominal pain Gastritis Qualifiers: Gastritis type: unspecified gastritis Chronicity: acute Gastritis bleeding: without bleeding Qualified Code(s): K29.00 - Acute gastritis without bleeding - Discharge Information Instructions: Gastritis, Adult, [id number] Referrals: PCP,None [Primary Care Provider] - Forms: ED Department Discharge Additional Instructions: The following information is given to patients seen in the emergency department who are being discharged to home. This information is to outline your options for follow-up care. We provide all patients seen in our emergency department with a follow-up referral. The need for follow-up, as well as the timing and circumstances, are variable depending upon the specifics of your emergency department visit. If you don't have a primary care physician on staff, we will provide you with a referral. We always advise you to contact your personal physician following an emergency department visit to inform them of the circumstance of the visit and for follow-up with them and/or the need for any referrals to a consulting specialist. The emergency department will also refer you to a specialist when appropriate. This referral assures that you have the opportunity for follow-up care with a specialist. All of these measure are taken in an effort to provide you with optimal care, which includes your follow-up. Under all circumstances we always encourage you to contact your private physician who remains a resource for coordinating your care. When calling for follow-up care, please make the office aware that this follow-up is from your recent emergency room visit. If for any reason you are refused follow-up, please contact the [facility] Emergency Department at and asked to speak to the emergency department charge nurse. [facility] [address] [place], [place] [id number] [address] [address] [facility] [place] - General Surgery Professional [facility] [address] [place] [address], [address] [place] [address] 1. Continue to take the medications that you were given at your prior ED visit until further evaluation by your primary care provider. 2. You can take Tylenol as directed for pain and discomfort. I would minimize the use of NSAIDs such as ibuprofen, Aleve, naproxen, or aspirin for pain management until you are further evaluated by your primary care provider. 3. Follow-up with a primary care provider as discussed. Return to the ED as needed and as discussed. Sepsis Event Note (ED) - Evaluation Sepsis Screening Result: No Definite Risk - Focused Exam Vital Signs: Vital Signs Temp Pulse Resp BP Pulse Ox 02/17/20 16:19 96.6 F L 67 16 125/69 95 02/17/20 15:48 67 18 115/70 97 02/17/20 14:55 72 20 124/74 95 02/17/20 13:46 97 F 87 22 H 128/85 96 - My Orders Last 24 Hours: My Active Orders 02/17/20 14:22 Saline Lock Insert [OM.PC] Stat 02/17/20 15:08 CORONAVIRUS COVID-19 PCR PHL Stat - Assessment/Plan Last 24 Hours: My Active Orders 02/17/20 14:22 Saline Lock Insert [OM.PC] Stat 02/17/20 15:08 CORONAVIRUS COVID-19 PCR PHL Stat
[2020-02-17 15:10] LABS: BLOOD UREA NITROGEN,BUN 16 mg/dL (7.0-18.0); CARBON DIOXIDE,CO2 25.1 mmol/L (21.0-32.0); CHLORIDE,CL 106 mmol/L (98-107); GLUCOSE RANDOM 112 mg/dL (74-106); LIPASE 211 U/L (73-393); POTASSIUM,K 4.2 mmol/L (3.5-5.1); SODIUM,NA 140 mmol/L (136-145)
--- NOTE | 2020-02-17 15:15 | CR ---
Indication: Chest pain. Dyspnea. Technique: AP portable view of the chest. Comparison: February 12, 2020. Findings: The heart is normal in size. The lungs are clear. No infiltrate, pleural effusion, or pneumothorax is identified. Impression: No acute cardiopulmonary process Dictated by Krystal Toscano MD @ Feb 17 2020 3:03PM Signed by Dr. Krystal Toscano @ Feb 17 2020 3:13PM
[2020-02-17] MEDS ORDERED: Pantoprazole 80 MG in Sodium Chloride 0.9% 20 ML IVPUSH ONE ×2 (15:17→15:21)
== END 2020-02-17 16:23 | disposition home or self-care (01) ==
LOC: MW.ED 13:39
DX: K29.00 Acute gastritis without bleeding (principal); K21.9 Gastro-esophageal reflux disease without esophagitis; F17.210 Nicotine dependence, cigarettes, uncomplicated; Z79.899 Other long term (current) drug therapy; Z20.828 Contact with and (suspected) exposure to other viral communicable diseases
CPT/HCPCS: 36415; 71045; 80053; 81001; 83615; 83690; 84484; 85025; 85379; 86308; 87635; 93005; 96374; 96375; 99284; A9270; C9113; J2270; J2405; 93010; 99283; U0002

== ENCOUNTER 2020-02-26 20:27 | Emergency (ER) | payer MEDICAID ==
[2020-02-26] MEDS ORDERED: Morphine 4 MG/ML Syringe IVPUSH ONE ×2 (20:43→22:08)
[2020-02-26] MEDS ORDERED: Sodium Chloride 0.9% 10 ML Syringe FLUSH PRN (20:43)
[2020-02-26] MEDS ORDERED: Sodium Chloride 0.9% 2.5 ML Syringe FLUSH PRN (20:43)
[2020-02-26] MEDS ORDERED: Ondansetron 4 MG/2 ML SDV IVPUSH ONE (20:43)
--- NOTE | 2020-02-26 20:53 | EDM.PDOC ---
ED HPI GENERAL MEDICAL PROBLEM - General Chief Complaint: Abdominal Pain Stated Complaint: ABD PAIN Time Seen by Provider: 02/26/20 20:32 - History of Present Illness INITIAL COMMENTS - FREE TEXT/NARRATIVE: Previously well 54-year-old female presenting with left upper quadrant abdominal pain. Patient has been seen a number of times in the last month for this complaint. She was initially seen on February 11 with left upper quadrant abdominal pain that worsened several minutes after eating burning in nature. Her labs and ultrasound were unremarkable she was diagnosed with gastritis she was placed on a PPI and Carafate and discharged she was seen again on February 16. Blood work at that time was again unremarkable. CT scan demonstrated thickening of the anterior gastric antrum consistent with suspected peptic ulcer disease. She has since followed up in the clinic in her outpatient provider was trying to arrange for her to be seen in my not for endoscopy. The patient states that the pain became acutely worse around 5 hours ago it is 10 out of 10 severe in the left upper quadrant worsens with deep breaths. It is associated with diarrhea and urinary urgency and frequency. No fevers no chills no flank pain. No alleviating factors she reports compliance with her medications. No other associated symptoms. Abdomen Pain Score (Numeric/FACES): 8 - Related Data Allergies Allergy/AdvReac Type Severity Reaction Status Date / Time No Known Allergies Allergy Verified 02/26/20 20:36 Home Meds: Home Meds Omeprazole 20 mg PO DAILY 14 Days #14 capsule. 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 Cardiovascular History: Reports: None Respiratory History: Reports: None Gastrointestinal History: Reports: GERD Genitourinary History: Reports: None [employer]GER [employer] History: Reports: Musculoskeletal History: Reports: None Neurological History: Reports: None Psychiatric History: Reports: None Endocrine/Metabolic History: Reports: None Insulin Pump Model and Tower Hand: None Hematologic History: Reports: None Immunologic History: Reports: None Oncologic (Cancer) History: Reports: None Dermatologic History: Reports: None - Infectious Disease History Infectious Disease History: Reports: Chicken Pox, Mumps - Past Surgical History Head Surgeries/Procedures: Reports: None HEENT Surgical History: Reports: Tonsillectomy Female Surgical History: Reports: Section, Hysterectomy Other Female Surgeries/Procedures: Hysterectomy at age 27 Social & Family History - Family History Family Medical History: No Pertinent Family History - Tobacco Use Tobacco Use Status *Q: Current Every Day Tobacco User Years of Tobacco use: 40 Packs/Tins Daily: 0.5 - Caffeine Use Caffeine Use: Reports: Coffee - Recreational Drug Use Recreational Drug Use: No ED ROS GENERAL - Review of Systems Review Of Systems: See Below Free Text/Narrative/Comment: General: No fever. Skin: No rash. Eyes: No vision problems. ENT: No sore throat. Neck: No neck stiffness. Respiratory: No shortness of breath. Cardiac: No chest pain. Gastrointestinal: Per HPI Urinary: No dysuria. Musculoskeletal: No myalgias/arthralgias. Neurologic: No headache. ED EXAM, GENERAL - Physical Exam Exam: See Below Free Text/Narrative:: General Appearance: No acute distress, appears comfortable Skin: No rash HEENT: Normocephalic/atraumatic, sclera anicteric, mucous membranes moist Neck: Normal range of motion Chest and Lungs: Bilateral breath sounds, clear to auscultation Cardiovascular: Regular rate and rhythm, no murmur Abdomen: Soft, left upper and left lower quadrant tenderness without guarding or rebound Back: Normal Musculoskeletal: No edema or tenderness Neurologic: Awake, alert, no obvious deficits, moving all extremities Psychiatric: Appropriate, cooperative Course - Vital Signs Last Recorded V/S: Last Vital Signs Temp 98.5 F 02/26/20 20:35 Pulse 83 02/26/20 20:35 Resp 18 02/26/20 20:35 BP 123/65 02/26/20 20:35 Pulse Ox 97 02/26/20 20:35 - Orders/Labs/Meds Orders: Active Orders 24 hr Category Date Time Status Sodium Chloride 0.9% [Saline Flush] Med 02/26/20 20:43 Active 10 ml FLUSH ASDIRECTED PRN Sodium Chloride 0.9% [Saline Flush] Med 02/26/20 20:43 Active 2.5 ml FLUSH ASDIRECTED PRN Saline Lock Insert [OM.PC] Stat Oth 02/26/20 20:43 Ordered Medication Orders Sodium Chloride (Saline Flush) 10 ml FLUSH ASDIRECTED PRN PRN Reason: Keep Vein Open Last Admin: 02/26/20 21:09 Dose: 10 ml Documented by: EVE Sodium Chloride (Saline Flush) 2.5 ml FLUSH ASDIRECTED PRN PRN Reason: Keep Vein Open Last Admin: 02/26/20 21:10 Dose: 2.5 ml Documented by: EVE Labs: Laboratory Tests 02/26/20 02/26/20 02/26/20 Range/Units 20:35 20:50 20:50 WBC 12.59 H (4.0-11.0) K/uL RBC 4.55 (4.30-5.90) M/uL Hgb 13.6 (12.0-16.0) g/dL Hct 41.1 (36.0-46.0) % MCV 90.3 (80.0-98.0) fL MCH 29.9 (27.0-32.0) pg MCHC 33.1 (31.0-37.0) g/dL RDW Std Deviation 45.3 (28.0-62.0) fl RDW Coeff of Marcelle 14 (11.0-15.0) % Plt Count 280 (150-400) K/uL MPV 9.10 (7.40-12.00) fL Neut % (Auto) 59.1 (48.0-80.0) % Lymph % (Auto) 29.9 (16.0-40.0) % Brooks % (Auto) 7.2 (0.0-15.0) % Eos % (Auto) 3.4 (0.0-7.0) % Baso % (Auto) 0.4 (0.0-1.5) % Neut # (Auto) 7.4 H (1.4-5.7) K/uL Lymph # (Auto) 3.8 H (0.6-2.4) K/uL Brooks # (Auto) 0.9 H (0.0-0.8) K/uL Eos # (Auto) 0.4 (0.0-0.7) K/uL Baso # (Auto) 0.1 (0.0-0.1) K/uL Nucleated RBC % 0.0 /100WBC Nucleated RBCs # 0 K/uL Sodium 142 (136-145) mmol/L Potassium 4.1 (3.5-5.1) mmol/L Chloride 108 H (98-107) mmol/L Carbon Dioxide 22.8 (21.0-32.0) mmol/L BUN 20 H (7.0-18.0) mg/dL Creatinine 0.9 (0.6-1.0) mg/dL Est Cr Clr Drug Dosing 51.92 mL/min Estimated GFR (MDRD) > 60.0 ml/min Glucose 108 H (74-106) mg/dL Calcium 8.8 (8.5-10.1) mg/dL Total Bilirubin 0.2 (0.2-1.0) mg/dL AST 14 L (15-37) IU/L ALT 43 (14-63) IU/L Alkaline Phosphatase 57 (46-116) U/L Total Protein 7.2 (6.4-8.2) g/dL Albumin 3.7 (3.4-5.0) g/dL Globulin 3.5 (2.6-4.0) g/dL Albumin/Globulin Ratio 1.1 (0.9-1.6) Urine Color YELLOW Urine Appearance CLEAR Urine pH 6.0 (5.0-8.0) Ur Specific [place] >= 1.030 (1.001-1.035) Urine Protein NEGATIVE (NEGATIVE) mg/dL Urine Glucose (UA) NEGATIVE (NEGATIVE) mg/dL Urine Ketones NEGATIVE (NEGATIVE) mg/dL Urine Occult Blood MODERATE H (NEGATIVE) Urine Nitrite NEGATIVE (NEGATIVE) Urine Bilirubin NEGATIVE (NEGATIVE) Urine Urobilinogen 0.2 (<2.0) EU/dL Ur Leukocyte Esterase NEGATIVE (NEGATIVE) Urine RBC 0-3 (0-2/HPF) Urine WBC 0-1 (0-5/HPF) Ur Epithelial Cells OCCASIONAL (NONE-FEW) Urine Bacteria FEW (NEGATIVE) Urine Mucus LIGHT (NONE-MOD) Meds: Medications Generic Name Dose Route Start Last Admin Trade Name Freq PRN Reason Stop Dose Admin Sodium Chloride 10 ml 02/26/20 20:43 02/26/20 21:09 Saline Flush FLUSH 10 ml ASDIRECTED PRN Administration Keep Vein Open Sodium Chloride 2.5 ml 02/26/20 20:43 02/26/20 21:10 Saline Flush FLUSH 2.5 ml ASDIRECTED PRN Administration Keep Vein Open Discontinued Medications Generic Name Dose Route Start Last Admin Trade Name Noeq PRN Reason Stop Dose Admin Iopamidol 100 ml 02/26/20 22:37 02/26/20 22:38 Isovue Multipack-370 (76%) IVPUSH 02/26/20 22:38 100 ml ONETIME STA Administration Morphine Sulfate 4 mg 02/26/20 20:43 02/26/20 21:06 Morphine IVPUSH 02/26/20 20:44 4 mg ONETIME ONE Administration Morphine Sulfate 4 mg 02/26/20 22:08 02/26/20 22:17 Morphine IVPUSH 02/26/20 22:09 4 mg ONETIME ONE Administration Ondansetron HCl 4 mg 02/26/20 20:43 02/26/20 21:06 Zofran IVPUSH 02/26/20 20:44 4 mg ONETIME ONE Administration Departure - Departure Time of Disposition: 23:21 Disposition: Home, Self-Care 01 Condition: Good Clinical Impression: Abdominal pain - Discharge Information *PRESCRIPTION DRUG MONITORING PROGRAM REVIEWED*: Not Applicable *COPY OF PRESCRIPTION DRUG MONITORING REPORT IN PATIENT VIOLETTE: Not Applicable Prescriptions: Dicyclomine [Bentyl] 20 mg PO TID PRN 7 Days #21 tab PRN Reason: Abdominal Pain Instructions: Abdominal Pain, Adult, [id number] Referrals: Mahsa Fitzgerald NP [Primary Care Provider] - Forms: ED Department Discharge Additional Instructions: I sent a prescription for Bentyl to the pharmacy. Please try a dose of this antispasmodic next time you have an episode of pain. I encourage you to continue to try and follow-up with the electrodynamicist in my not. If you develop a fever any new symptoms or you have another severe episode that does not resolve with the medications you have at home I encourage you to return to the ER. The following information is given to patients seen in the emergency department who are being discharged to home. This information is to outline your options for follow-up care. We provide all patients seen in our emergency department with a follow-up referral. The need for follow-up, as well as the timing and circumstances, are variable depending upon the specifics of your emergency department visit. If you don't have a primary care physician on staff, we will provide you with a referral. We always advise you to contact your personal physician following an emergency department visit to inform them of the circumstance of the visit and for follow-up with them and/or the need for any referrals to a consulting specialist. The emergency department will also refer you to a specialist when appropriate. This referral assures that you have the opportunity for follow-up care with a specialist. All of these measure are taken in an effort to provide you with optimal care, which includes your follow-up. Under all circumstances we always encourage you to contact your private physician who remains a resource for coordinating your care. When calling for follow-up care, please make the office aware that this follow-up is from your recent emergency room visit. If for any reason you are refused follow-up, please contact the [facility] Emergency Department at and asked to speak to the emergency department charge nurse. Sepsis Event Note (ED) - Evaluation Sepsis Screening Result: No Definite Risk - Focused Exam Vital Signs: Vital Signs Temp Pulse Resp BP Pulse Ox 02/26/20 20:35 98.5 F 83 18 123/65 97 - My Orders Last 24 Hours: My Active Orders 02/26/20 20:43 Sodium Chloride 0.9% [Saline Flush] 10 ml FLUSH ASDIRECTED PRN Sodium Chloride 0.9% [Saline Flush] 2.5 ml FLUSH ASDIRECTED PRN Saline Lock Insert [OM.PC] Stat - Assessment/Plan Last 24 Hours: My Active Orders 02/26/20 20:43 Sodium Chloride 0.9% [Saline Flush] 10 ml FLUSH ASDIRECTED PRN Sodium Chloride 0.9% [Saline Flush] 2.5 ml FLUSH ASDIRECTED PRN Saline Lock Insert [OM.PC] Stat Assessment:: 54-year-old female presenting with signs and symptoms that do seem most consistent with her peptic ulcer disease pain. The severe worsening raises the possibility of perforation she is nontoxic in appearance but very uncomfortable we will start with blood work and upright chest to assess for any subdiaphragmatic air. Morphine Zofran for symptoms and will reassess. Patient just had a CT scan 8 days ago for this etiology. Would not want to repeat scan her unnecessarily. However, if patient continues to have severe symptoms or there is anything suspicious on the chest x-ray this may be necessary. Pt's labs are stable, mild leukocytosis unchanged from prior. CXR is normal. On reassessment pt's sx are improved. However, she continues to have bilateral upper quadrant tenderness, no peritonitis, guarding or rebound. Given this finding and potential for small ulcer perforation CT a/p will be ordered and an additional dose of morphine provided. 2310: CT scan is without acute finding. The findings of PUD seen on prior CT are not present. No findings of perforation or other acute process. The etiology of the patient's sx are not readily apparent. There is no chest pain or exertional component to this, no tachycardia or hypoxia. I do not belive this to be cardia in nature nor is PE consistent with her presentation. Her abd tenderness also argues strongly against a cardiac or pulmonary process. Sphincter of Paul spasm can present this way. Functional abd pain is also a consideration. UA is w/out signs of infection. There are now lower abd sx or findings that would suggest gynecologic pathology. No adnexal masses that would suggest atypical torsion presentation. No AAA. Presentation does not appear consistent with aortic dissection or mesenteric ischemia. The patient's PCP is arranging for GI follow-up. Pt is ambulating around the ED with a stable gait. After the second dose of morphine patient feels much improved she feels like there is a spasm or tightness that is released. Possible that gastric intestinal spasms may be leading to some of this. I do long discussion with the patient she is comfortable going home she will continue to arrange follow-up with a electrodynamicist prescription for Bentyl has been sent to the pharmacy for her to try that the next time she has an episode of pain.
[2020-02-26 21:21] LABS: BLOOD UREA NITROGEN,BUN 20 mg/dL (7.0-18.0); CARBON DIOXIDE,CO2 22.8 mmol/L (21.0-32.0); CHLORIDE,CL 108 mmol/L (98-107); GLUCOSE RANDOM 108 mg/dL (74-106); POTASSIUM,K 4.1 mmol/L (3.5-5.1); SODIUM,NA 142 mmol/L (136-145)
--- NOTE | 2020-02-26 21:29 | CR ---
Clinical INDICATION: Rule out subdiaphragmatic air. FINDINGS: There is no free air under the diaphragm. The cardiomediastinal silhouette, lung parenchyma, pulmonary vasculature and pleural surfaces are all normal in appearance. The bony thorax appears intact. IMPRESSION: Negative study. No free intraperitoneal air under the diaphragm. Dictated by Guero Maravilla MD @ Feb 26 2020 9:28PM Signed by Dr. Guero Maravilla @ Feb 26 2020 9:29PM
[2020-02-26] MEDS ORDERED: Iopamidol 755 MG/ML 500 ML Multipack Bottle IVPUSH STA (22:37)
--- NOTE | 2020-02-26 23:07 | CT ---
INDICATION: Suspected peptic ulcer disease, now with acute severe upper abdominal pain TECHNIQUE: CT abdomen and pelvis with 100 cc Isovue 370 contrast. COMPARISON: February 14, 2020 FINDINGS: Lower chest: Unremarkable. Liver: Hepatic steatosis. Spleen: The spleen measures 13.3 cm in length. Pancreas: Unremarkable. Gallbladder and bile ducts: Unremarkable. Adrenal glands: Stable 3.4 cm the right adrenal gland. Stable 1.2 cm and 1.3 cm left adrenal gland nodule. Kidneys: Simple cysts on the left kidney. GI tract: No extraluminal air. No evidence for peptic ulcer. Appendix is normal. Vascular structures: Unremarkable. Lymph nodes: Unremarkable. Miscellaneous: Unremarkable. No free air or significant free fluid. Pelvic Organs: Status post hysterectomy. Bones: Bilateral L5 pars defects. IMPRESSION: No acute intra-abdominal process identified. Hepatic steatosis. Mild splenomegaly. Right adrenal gland myelolipoma. Indeterminate left adrenal gland nodules. Recommend adrenal CT for further evaluation. Status post hysterectomy Please note that all CT scans at this facility use dose modulation, iterative reconstruction, and/or weight-based dosing when appropriate to reduce radiation dose to as low as reasonably achievable. Dictated by Renetta Leavitt MD @ Feb 26 2020 10:57PM Signed by Dr. Renetta Leavitt @ Feb 26 2020 11:05PM
== END 2020-02-26 23:32 | disposition home or self-care (01) ==
LOC: MW.ED 20:27
DX: R10.12 Left upper quadrant pain (principal); R10.32 Left lower quadrant pain; K21.9 Gastro-esophageal reflux disease without esophagitis; F17.210 Nicotine dependence, cigarettes, uncomplicated; Z79.899 Other long term (current) drug therapy
CPT/HCPCS: 36415; 71046; 74177; 80053; 81001; 85025; 96374; 96375; 96376; 99284; J2270; J2405; Q9967; 99283

== ENCOUNTER 2020-03-12 17:41 | Emergency (ER) | payer MEDICAID ==
[2020-03-12] MEDS ORDERED: Ondansetron 4 MG/2 ML SDV IVPUSH ONE (18:03)
[2020-03-12] MEDS ORDERED: Morphine 4 MG/ML Syringe IVPUSH ONE (18:03)
[2020-03-12] MEDS ORDERED: Acetaminophen/HYDROcodone 325-5 MG Tab PO ONE (18:07)
--- NOTE | 2020-03-12 18:18 | EDM.PDOC ---
ED HPI GENERAL MEDICAL PROBLEM - General Chief Complaint: Abdominal Pain Stated Complaint: ABDOMINAL PAIN Time Seen by Provider: 03/12/20 17:44 Source of Information: Reports: Patient History Limitations: Reports: No Limitations - History of Present Illness INITIAL COMMENTS - FREE TEXT/NARRATIVE: HISTORY AND PHYSICAL: History of present illness: Patient is a 54-year-old female who presents to the emergency room with complaints of left upper quadrant pain. She states she has been seen in the emergency room 3 times last month and again on February 26, 2020. She has not found any reason behind her left upper quadrant pain other than H.pylori, which she is currently being treated for. She does have an appointment for an elective esophagogastroduoendoscopy and a colonoscopy on 03/14/2020. States the Tylenol she has been taking without any relief. Patient denies any fever, chills, headache, change in vision, syncope or near syncope. Denies any chest pain, back pain, shortness of breath or cough. Denies any nausea, vomiting, diarrhea, constipation or dysuria. Has not noted any blood in urine or stool. Patient has been eating and drinking appropriately. Review of systems: As per history of present illness and below otherwise all systems reviewed and negative. Past medical history: As per history of present illness and as reviewed below otherwise noncontributo ry. Surgical history: As per history of present illness and as reviewed below otherwise noncontributory. Social history: See social history for further information Family history: As per history of present illness and as reviewed below otherwise noncontributory. Physical exam: General: Well developed and well nourished 54-year-old female. Alert and orientated x 3. Nontoxic in appearance and in no acute distress. Vital signs are stable and have been reviewed by me. Nursing notes were reviewed. HEENT: Atraumatic, normocephalic, pupils equal and reactive bilaterally, negative for conjunctival pallor or scleral icterus, mucous membranes moist, TMs normal bilaterally, throat clear, neck supple, nontender, trachea midline. No drooling or trismus noted. No meningeal signs. No hot potato voice noted. Lungs: Clear to auscultation, breath sounds equal bilaterally, chest nontender. Normal work of breathing, no accessory muscles used. Heart: S1S2, regular rate and rhythm without overt murmur Abdomen: Soft, obese, mild LUQ tenderness. Negative for masses or costovertebral tenderness. Pelvis: Stable nontender. Skin: Intact, warm, dry. No lesions or rashes noted. Hematologic: No petechiae or purpra. Mucosa appropriate color and normal nail bed color and refill. Extremities: Atraumatic, moves all extremities per self without difficulty or deficits, negative for cords or calf pain. Neurovascular unremarkable. Neuro: Awake, alert, oriented. Cranial nerves II through XII unremarkable. Cerebellum unremarkable. Motor and sensory unremarkable throughout. Exam nonfocal. Psychiatric: Mood and affect are appropriate. Normal thought process. Answering questions appropriately. Notes: 02/26/2020: CT of the abdomen and pelvis shows no acute intra-abdominal process. Hepatic steatosis. Mild splenomegaly. Right adrenal gland myelolipoma. Shortly after she saw Dr Jones for follow up of her ER visits, he scheduled her for an endoscopy and colonoscopy for 03/14/2020. Patient reports that the medication increased her pain. We will give her a GI cocktail to see if this helps alleviate any discomfort. VSS. Pain improved. Lab work is unremarkable. With patient having multiple ER visits and imaging 2 weeks ago I do not feel that she needs further imaging at this time as her labs have improved/no change and she has had evaluation/care by Dr Jones. We will give her a small amount of pain medication to get her through until she sees Dr. Jones in 2 days for her scopes. I have talked with the patient about today's findings, in addition to providing specific details for plan of care. Reassessment at the time of disposition demonstrates that the patient is in no acute distress. The patient is stable for discharge, counseling was provided and we discussed in great detail signs and symptoms that would prompt them to return to the Emergency Department. Medication, follow up and supportive care measures were reviewed and discussed. Voices understanding and is agreeable to plan of care. Denies any further questions or concerns at this time. Diagnostics: CBC, CMP, Lipase, UA Therapeutics: Elmer Prescription: Elmer (#15) Impression: Abdominal Pain, LUQ Plan: 1. Today your repeat lab work was done and normal. I want to keep you comfortable until you follow up with Dr Jones. Please take the medication responsibility because it can cause drowsiness. Do not take while driving or needing to be functioning outside the house. 2. Keep your appointment with Dr Jones 3. We encourage you to follow up with your primary care provider and/or recommended specialist in the next few days for re-evaluation and further care/management. If your symptoms should worsen, new symptoms develop or any of the signs and symptoms we discussed should arise please return to the emergency room or call 911 (if needed). Definitive disposition and diagnosis as appropriate pending reevaluation and review of above. Treatments WEAPONS SPECIALIST: Reports: Acetaminophen Left Upper Abdomen Pain Score (Numeric/FACES): 8 - Related Data Allergies Allergy/AdvReac Type Severity Reaction Status Date / Time No Known Allergies Allergy Verified 03/10/20 07:59 Home Meds: Home Meds Omeprazole 20 mg PO DAILY 14 Days #14 capsule. 02/13/20 [Rx] Sucralfate [Carafate] 1 gm PO TID 7 Days #42 tablet 02/13/20 [Rx] Amoxicillin 1 tab PO BID 03/10/20 [History] Ciprofloxacin HCl [Cipro] 1 tab PO Q12HR 03/10/20 [History] Clarithromycin 1 tab PO Q12HR 03/10/20 [History] Acetaminophen/HYDROcodone [Elmer 325-5 MG] 1 - 2 dose PO Q4H #15 tablet 03/12/20 [Rx] Past Medical History HEENT History: Reports: Hard of Hearing, Impaired Vision Other HEENT History: Deaf in right ear, wears glasses Cardiovascular History: Reports: None Respiratory History: Reports: None Gastrointestinal History: Other Gastrointestinal History: states has H pylori infection Genitourinary History: Reports: None LEGAL BILLING SPECIALIST History: Reports: Musculoskeletal History: Reports: None Neurological History: Reports: None Psychiatric History: Reports: None Endocrine/Metabolic History: Reports: Obesity/BMI 30+ Insulin Pump Model and Registrar Nurses' Registry: None Hematologic History: Reports: None Immunologic History: Reports: None Oncologic (Cancer) History: Reports: None Dermatologic History: Reports: None - Infectious Disease History Infectious Disease History: Reports: Chicken Pox, Mumps Other Infectious Disease History: when a child - Past Surgical History Head Surgeries/Procedures: Reports: None HEENT Surgical History: Reports: Tonsillectomy Cardiovascular Surgical History: Reports: None Other GI Surgeries/Procedures: states had an exploratory laparotomy in the past Female Surgical History: Reports: None, Section, Hysterectomy Musculoskeletal Surgical History: Reports: None Social & Family History - Family History Family Medical History: No Pertinent Family History - Caffeine Use Caffeine Use: Reports: Coffee ED ROS GENERAL - Review of Systems Review Of Systems: Comprehensive ROS is negative, except as noted in HPI. ED EXAM, GI/ABD - Physical Exam Exam: See Below (See dictation) Course - Vital Signs Last Recorded V/S: Last Vital Signs Temp 98.8 F 03/12/20 17:47 Pulse 97 03/12/20 17:47 Resp 18 03/12/20 17:47 BP 115/68 03/12/20 17:47 Pulse Ox - Orders/Labs/Meds Labs: Laboratory Tests 03/12/20 03/12/20 03/12/20 Range/Units 18:16 18:16 19:25 WBC 10.91 (4.0-11.0) K/uL RBC 4.55 (4.30-5.90) M/uL Hgb 13.2 (12.0-16.0) g/dL Hct 40.5 (36.0-46.0) % MCV 89.0 (80.0-98.0) fL MCH 29.0 (27.0-32.0) pg MCHC 32.6 (31.0-37.0) g/dL RDW Std Deviation 44.5 (28.0-62.0) fl RDW Coeff of Marcelle 14 (11.0-15.0) % Plt Count 278 (150-400) K/uL MPV 9.10 (7.40-12.00) fL Neut % (Auto) 56.0 (48.0-80.0) % Lymph % (Auto) 32.6 (16.0-40.0) % [place] % (Auto) 7.5 (0.0-15.0) % Eos % (Auto) 3.4 (0.0-7.0) % Baso % (Auto) 0.5 (0.0-1.5) % Neut # (Auto) 6.1 H (1.4-5.7) K/uL Lymph # (Auto) 3.6 H (0.6-2.4) K/uL [place] # (Auto) 0.8 (0.0-0.8) K/uL Eos # (Auto) 0.4 (0.0-0.7) K/uL Baso # (Auto) 0.1 (0.0-0.1) K/uL Nucleated RBC % 0.0 /100WBC Nucleated RBCs # 0 K/uL Sodium 143 (136-145) mmol/L Potassium 4.0 (3.5-5.1) mmol/L Chloride 107 (98-107) mmol/L Carbon Dioxide 24.7 (21.0-32.0) mmol/L BUN 17 (7.0-18.0) mg/dL Creatinine 1.0 (0.6-1.0) mg/dL Est Cr Clr Drug Dosing 46.73 mL/min Estimated GFR (MDRD) 58.0 ml/min Glucose 102 (74-106) mg/dL Calcium 9.2 (8.5-10.1) mg/dL Total Bilirubin 0.2 (0.2-1.0) mg/dL AST 16 (15-37) IU/L ALT 26 (14-63) IU/L Alkaline Phosphatase 58 (46-116) U/L Total Protein 7.2 (6.4-8.2) g/dL Albumin 3.7 (3.4-5.0) g/dL Globulin 3.5 (2.6-4.0) g/dL Albumin/Globulin Ratio 1.1 (0.9-1.6) Lipase 283 (73-393) U/L Urine Color YELLOW Urine Appearance CLEAR Urine pH 5.5 (5.0-8.0) Ur Specific [place] >= 1.030 (1.001-1.035) Urine Protein NEGATIVE (NEGATIVE) mg/dL Urine Glucose (UA) NEGATIVE (NEGATIVE) mg/dL Urine Ketones NEGATIVE (NEGATIVE) mg/dL Urine Occult Blood SMALL H (NEGATIVE) Urine Nitrite NEGATIVE (NEGATIVE) Urine Bilirubin NEGATIVE (NEGATIVE) Urine Urobilinogen 0.2 (<2.0) EU/dL Ur Leukocyte Esterase NEGATIVE (NEGATIVE) Urine RBC 0-3 (0-2/HPF) Urine WBC 0-1 (0-5/HPF) Ur Epithelial Cells RARE (NONE-FEW) Urine Bacteria FEW (NEGATIVE) Urine Mucus LIGHT (NONE-MOD) Meds: Medications Discontinued Medications Generic Name Dose Route Start Last Admin Trade Name Freq PRN Reason Stop Dose Admin Hydrocodone Bitart/Acetaminophen 1 tab 03/12/20 18:07 03/12/20 18:19 Elmer 325-5 Mg PO 03/12/20 18:08 1 tab ONETIME ONE Administration Al Hydroxide/Mg Hydroxide 15 0 ml 03/12/20 19:24 ml/ Lidocaine HCl 5 ml PO 03/12/20 19:25 ONETIME ONE Morphine Sulfate 4 mg 03/12/20 18:03 Morphine IVPUSH 03/12/20 18:04 ONETIME ONE Ondansetron HCl 4 mg 03/12/20 18:03 Zofran IVPUSH 03/12/20 18:04 ONETIME ONE Departure - Departure Time of Disposition: 18:52 Disposition: Home, Self-Care 01 Clinical Impression: Abdominal pain Qualifiers: Abdominal location: left upper quadrant Qualified Code(s): R10.12 - Left upper quadrant pain - Discharge Information Prescriptions: Acetaminophen/HYDROcodone [Elmer 325-5 MG] 1 - 2 dose PO Q4H #15 tablet Instructions: Abdominal Pain, Adult, [id number] Referrals: PCP,None [Primary Care Provider] - Forms: ED Department Discharge Additional Instructions: The following information is given to patients seen in the emergency department who are being discharged to home. This information is to outline your options for follow-up care. We provide all patients seen in our emergency department with a follow-up referral. The need for follow-up, as well as the timing and circumstances, are variable depending upon the specifics of your emergency department visit. If you don't have a primary care physician on staff, we will provide you with a referral. We always advise you to contact your personal physician following an emergency department visit to inform them of the circumstance of the visit and for follow-up with them and/or the need for any referrals to a consulting specialist. The emergency department will also refer you to a specialist when appropriate. This referral assures that you have the opportunity for follow-up care with a specialist. All of these measure are taken in an effort to provide you with optimal care, which includes your follow-up. Under all circumstances we always encourage you to contact your private physician who remains a resource for coordinating your care. When calling for follow-up care, please make the office aware that this follow-up is from your recent emergency room visit. If for any reason you are refused follow-up, please contact the [facility] Emergency Department at and asked to speak to the emergency department charge nurse. [facility] [address] [place] [address] [facility] [address] [place] [address] Thank you for choosing the [facility] emergency department in [place] for your medical needs today. It was a pleasure caring for you. Today you were seen in the emergency department for abdominal pain. 1. Today your repeat lab work was done and normal. I want to keep you comfortable until you follow up with Dr Jones. Please take the medication responsibility because it can cause drowsiness. Do not take while driving or needing to be functioning outside the house. 2. Keep your appointment with Dr Jones 3. We encourage you to follow up with your primary care provider and/or recommended specialist in the next few days for re-evaluation and further care/management. If your symptoms should worsen, new symptoms develop or any of the signs and symptoms we discussed should arise please return to the emergency room or call 911 (if needed). Sepsis Event Note (ED) - Evaluation Sepsis Screening Result: No Definite Risk - Focused Exam Vital Signs: Vital Signs Temp Pulse Resp BP 03/12/20 17:47 98.8 F 97 18 115/68
[2020-03-12 19:12] LABS: CARBON DIOXIDE,CO2 24.7 mmol/L (21.0-32.0)
[2020-03-12] MEDS ORDERED: Alum Hydrox/Mag Hydrox/Simeth 15 ML, Lidocaine 2% 5 ML PO ONE ×2 (19:24)
== END 2020-03-12 20:01 | disposition home or self-care (01) ==
LOC: MW.ED 17:41
DX: R10.12 Left upper quadrant pain (principal); E66.9 Obesity, unspecified; Z68.39 Body mass index [BMI] 39.0-39.9, adult; Z79.899 Other long term (current) drug therapy
CPT/HCPCS: 36415; 80053; 81001; 83690; 85025; 99284; A9270; 99283

== ENCOUNTER 2020-03-14 09:08 | Day surgery (SDC) | payer MEDICAID ==
[~2020-03-14 09:08] MED LIST: Lactated Ringers 1,000 ML IV SCH; Midazolam 1 MG/ML 2 ML SDV ONE; Ondansetron 4 MG/2 ML SDV ONE; Propofol 200 MG/20 ML SDV ONE; fentaNYL 100 MCG/2 ML SDV ONE
--- NOTE | 2020-03-14 10:41 | PCM.PREANE ---
Preanesthetic Assessment - Anesthesia/Transfusion/Family Hx Anesthesia History: Prior Anesthesia Without Reaction Family History of Anesthesia Reaction: No Transfusion History: Prior Transfusion Without Reaction Intubation History: Unknown - Review of Systems General: No Symptoms Pulmonary: No Symptoms Cardiovascular: No Symptoms Gastrointestinal: Abdominal Pain Neurological: No Symptoms Other: Reports: None - Physical Assessment Vital Signs: Last Vital Signs Temp 36.8 C 03/14/20 09:40 Pulse 71 03/14/20 09:40 Resp 16 03/14/20 09:40 BP 104/58 L 03/14/20 09:40 Pulse Ox 97 03/14/20 09:40 Height: 5 ft Weight: 90.718 kg ASA Class: 2 Mental Status: Alert & Oriented x3 Airway Class: Mallampati = 2 Dentition: Reports: Normal Dentition Thyro-Mental Finger Breadths: 3 Mouth Opening Finger Breadths: 3 ROM/Head Extension: Full Lungs: Clear to Auscultation, Normal Respiratory Effort Cardiovascular: Regular Rate, Regular Rhythm - Allergies Allergies/Adverse Reactions: Allergies Allergy/AdvReac Type Severity Reaction Status Date / Time No Known Allergies Allergy Verified 03/10/20 07:59 - Blood Product(s) Available: None - Anesthesia Plan Pre-Op Medication Ordered: None - Acknowledgements Anesthesia Type Planned: MAC Pt an Appropriate Candidate for the Planned Anesthesia: Yes Alternatives and Risks of Anesthesia Discussed w Pt/Guardian: Yes Pt/Guardian Understands and Agrees with Anesthesia Plan: Yes PreAnesthesia Questionnaire HEENT History: Reports: Hard of Hearing, Impaired Vision Other HEENT History: Deaf in right ear, wears glasses Cardiovascular History: Reports: None Respiratory History: Reports: None Gastrointestinal History: Reports: Other (See Below) (hepatic steatosis) Other Gastrointestinal History: states has H pylori infection Genitourinary History: Reports: Other (See Below) (left renal cyst,left adrenal gland myelolipoma) FLOORWORKER History: Reports: Musculoskeletal History: Reports: None Neurological History: Reports: None Psychiatric History: Reports: None Endocrine/Metabolic History: Reports: Obesity/BMI 30+ (BMI 39.1) Hematologic History: Reports: None Immunologic History: Reports: None Oncologic (Cancer) History: Reports: None Dermatologic History: Reports: None - Infectious Disease History Infectious Disease History: Reports: Chicken Pox, Mumps Other Infectious Disease History: when a child - Past Surgical History Head Surgeries/Procedures: Reports: None HEENT Surgical History: Reports: Tonsillectomy Cardiovascular Surgical History: Reports: None Other GI Surgeries/Procedures: states had an exploratory laparotomy in the past Female Surgical History: Reports: None, Section, Hysterectomy Other Female Surgeries/Procedures: laparoscopy for endometriosis Musculoskeletal Surgical History: Reports: None - SUBSTANCE USE Tobacco Use Status *Q: Current Every Day Tobacco User Tobacco Use Within Last Twelve Months: Cigarettes - HOME MEDS Home Medications: Home Meds Omeprazole 20 mg PO DAILY 14 Days #14 capsule.dr 02/13/20 [Rx] Sucralfate [Carafate] 1 gm PO TID 7 Days #42 tablet 02/13/20 [Rx] Amoxicillin 1 tab PO BID 03/10/20 [History] Ciprofloxacin HCl [Cipro] 1 tab PO Q12HR 03/10/20 [History] Clarithromycin 1 tab PO Q12HR 03/10/20 [History] Acetaminophen/HYDROcodone [[place] 325-5 MG] 1 - 2 dose PO Q4H #15 tablet 03/12/20 [Rx] - CURRENT (IN HOUSE) MEDS Current Meds: Current Medications Lactated Ringer's (Ringers, Lactated) 1,000 mls @ 125 mls/hr IV ASDIRECTED BILLY Last Admin: 03/14/20 10:18 Dose: 125 mls/hr Documented by: Discontinued Medications Fentanyl (Sublimaze) Confirm Administered Dose 100 mcg .ROUTE .STK-MED ONE Stop: 03/14/20 07:17 Lidocaine HCl (Xylocaine-Mpf 1%) Confirm Administered Dose 5 ml .ROUTE .STK-MED ONE Stop: 03/14/20 07:17 Midazolam HCl (Versed 1 Mg/Ml) Confirm Administered Dose 2 mg .ROUTE .STK-MED ONE Stop: 03/14/20 07:17 Ondansetron HCl (Zofran) Confirm Administered Dose 4 mg .ROUTE .STK-MED ONE Stop: 03/14/20 07:17 Propofol (Diprivan 20 Ml) Confirm Administered Dose 200 mg .ROUTE .STK-MED ONE Stop: 03/14/20 07:17
[2020-03-14] MEDS ORDERED: Propofol 200 MG/20 ML SDV ONE (11:20)
[2020-03-14] MEDS ORDERED: Lactated Ringers 1,000 ML IV SCH (11:45)
--- NOTE | 2020-03-14 11:47 | PCM.POSTAN ---
POST ANESTHESIA ASSESSMENT - MENTAL STATUS Mental Status: Alert, Oriented - VITAL SIGNS Vital Signs: Last Vital Signs Temp 36.8 C 03/14/20 09:40 Pulse 77 03/14/20 11:40 Resp 17 03/14/20 11:40 BP 114/72 03/14/20 11:40 Pulse Ox 96 03/14/20 11:40 - RESPIRATORY Respiratory Status: Respiratory Rate WNL, Airway Patent, O2 Saturation Stable - CARDIOVASCULAR CV Status: Pulse Rate WNL, Blood Pressure Stable - GASTROINTESTINAL GI Status: No Symptoms - PAIN Pain Score: 0 - POST OP HYDRATION Hydration Status: Adequate & Stable - OBSERVATIONS Free Text/Narrative:: No anesthesia problems
--- NOTE | 2020-03-14 11:48 | PCM.OPNOTE ---
- General Post-Op/Procedure Note Date of Surgery/Procedure: 03/14/20 Operative Procedure(s): Esophagogastroduodenoscopy with antral and gastric body biopsies. Colonoscopy with cold rectal polypectomy. Pre Op Diagnosis: Chronic left upper quadrant abdominal pain. History of H. pylori gastritis. Desire for colorectal cancer screening. Post-Op Diagnosis: Acute and chronic gastritis involving the antrum and body of the stomach. Rectal polyp. Anesthesia Technique: MAC (ASA II) Primary Surgeon: Rafael Jones Condition: Good Free Text/Narrative:: DICTATION [id number] CPT CODE [id number]
--- NOTE | 2020-03-14 12:06 | PCM48HPAN ---
Post Anesthesia Note - EVALUATION WITHIN 48HRS OF ANESTHETIC Vital Signs in Normal Range: Yes Patient Participated in Evaluation: Yes Respiratory Function Stable: Yes Airway Patent: Yes Cardiovascular Function Stable: Yes Hydration Status Stable: Yes Pain Control Satisfactory: Yes Nausea and Vomiting Control Satisfactory: Yes Mental Status Recovered: Yes Vital Signs: Last Vital Signs Temp 36.8 C 03/14/20 09:40 Pulse 77 03/14/20 11:40 Resp 17 03/14/20 11:40 BP 114/72 03/14/20 11:40 Pulse Ox 96 03/14/20 11:40 - COMMENTS/OBSERVATIONS Free Text/Narrative:: no anesthesia problems
--- NOTE | 2020-03-14 12:52 | OR ---
SURGEON: Rafael Jones M.D. DATE OF PROCEDURE: 03/14/2020 PROCEDURE PERFORMED: Esophagogastroduodenoscopy with antral and gastric body biopsy. PRIMARY SURGEON: Rafael Jones MD. ANESTHESIA: MAC. ASA CLASSIFICATION: II. PREOPERATIVE DIAGNOSES: 1. Chronic left upper quadrant abdominal pain. 2. History of Helicobacter pylori gastritis. POSTOPERATIVE DIAGNOSIS: [id number] gastritis involving the antrum and body of the stomach. DESCRIPTION OF PROCEDURE: The patient was taken to the endoscopy room and positioned on the endoscopy table in the left lateral decubitus position. Time-out was called for appropriate identification of the patient and procedure. Monitored anesthesia care was provided. The bite block was placed between the patient's teeth. The gastroscope was inserted through the bite block and advanced without difficulty through the esophagus and stomach into the duodenum where examination was carried out in a retrograde fashion. The duodenum showed no acute inflammatory changes. No ulcers were noted. The gastroscope was then withdrawn to the stomach which did show [id number] acute and chronic gastritis. No acute ulcerations were noted. Antral biopsies were obtained to look for the presence of Helicobacter pylori. The gastroscope was then retroflexed to visualize the proximal stomach. No hiatal hernia was noted. The gastroscope was then straightened and slowly withdrawn along the greater curvature. This did appear to show some significant inflammatory changes and thickening of the mucosa. Separate biopsies of this area were obtained. The gastroscope was then slowly withdrawn through the GE junction. No acute inflammatory changes were noted. The esophagus itself demonstrated good contractility. No mid or proximal lesions were identified. The vocal cords were briefly visualized as the scope was withdrawn and noted to move symmetrically. The gastroscope was then removed with the patient having tolerated the procedure well. Following colonoscopy, she was taken to recovery room in satisfactory condition. ANNE-MARIE / INDRA /[id number]
--- NOTE | 2020-03-14 14:49 | OR ---
SURGEON: Rafael Jones M.D. DATE OF PROCEDURE: 03/14/2020 PROCEDURE PERFORMED: Colonoscopy with cold rectal polypectomy. PRIMARY SURGEON: Rafael Jones MD. ANESTHESIA: MAC. ASA CLASSIFICATION: 2. PREOPERATIVE DIAGNOSIS: Desire for colorectal cancer screening. POSTOPERATIVE DIAGNOSIS: Rectal polyp. DESCRIPTION OF PROCEDURE: With the patient having completed upper GI endoscopy, she was maintained in the left lateral decubitus position. The colonoscope was inserted into the rectum and advanced with minimal difficulty to the cecum. The cecum was identified by internal landmarks and external pressure. The colonoscope was retroflexed to visualize the ascending colon from below, then straightened and slowly withdrawn. The cecum, ascending colon, hepatic flexure, transverse colon, splenic flexure, descending colon, sigmoid colon, and rectum were very well visualized. One small polyp was encountered in the rectum and removed with cold biopsy forceps. No polyps, diverticular changes, angiodysplasia, or evidence of inflammatory bowel disease was noted anywhere else in the colon. Once the colonoscope was withdrawn to the rectum, it was retroflexed to visualize the anal orifice from above. Again note, no hemorrhoidal changes were noted. The colonoscope was then straightened, the rectum aspirated, and the colonoscope removed. The patient tolerated the procedure well and was taken to recovery room in stable condition. ANNE-MARIE / INDRA /[id number]
== END 2020-03-14 11:57 | disposition home or self-care (01) ==
LOC: MW.SDS 09:08
PROVIDERS: ATTEND Surgery
DX: Z12.11 Encounter for screening for malignant neoplasm of colon (principal); K62.1 Rectal polyp; K29.50 Unspecified chronic gastritis without bleeding; E66.9 Obesity, unspecified; F17.210 Nicotine dependence, cigarettes, uncomplicated; Z79.899 Other long term (current) drug therapy; Z98.890 Other specified postprocedural states; Z68.39 Body mass index [BMI] 39.0-39.9, adult
CPT/HCPCS: 43239; 45380; J2001; J2250; J2405; J2704; J3010; J7120

== ENCOUNTER 2020-03-23 00:01 | Emergency (ER) | payer MEDICAID ==
[2020-03-23] MEDS ORDERED: Morphine 4 MG/ML Syringe IVPUSH ONE (00:23)
--- NOTE | 2020-03-23 00:23 | EDM.PDOC ---
ED HPI GENERAL MEDICAL PROBLEM - General Chief Complaint: Abdominal Pain Stated Complaint: ABDOMINAL PAIN Time Seen by Provider: 03/23/20 00:06 Source of Information: Reports: Patient History Limitations: Reports: No Limitations - History of Present Illness INITIAL COMMENTS - FREE TEXT/NARRATIVE: She is a 54-year-old female with history of chronic abdominal pain. Patient presents today with left lower quadrant pain. Patient pain is normally in her left upper quadrant. Patient recently had a endoscopy that did show chronic gastritis no other findings. Patient states this pain in the left lower quadrant started a few hours ago has been constant and intense and pain. Pain is not made worse or better with any events. Patient still tolerating p.o. has no vomiting but has reported some watery diarrhea. Patient also reported some body aches and chills but no documented fevers. Abdomen Pain Score (Numeric/FACES): 10 - Related Data Allergies Allergy/AdvReac Type Severity Reaction Status Date / Time No Known Allergies Allergy Verified 03/23/20 00:13 Home Meds: Home Meds Omeprazole 20 mg PO DAILY 14 Days #14 capsule.dr 02/13/20 [Rx] Sucralfate [Carafate] 1 gm PO TID 7 Days #42 tablet 02/13/20 [Rx] Acetaminophen/HYDROcodone [Bendena 325-5 MG] 1 - 2 dose PO Q4H #15 tablet 03/12/20 [Rx] Past Medical History HEENT History: Reports: Hard of Hearing, Impaired Vision Other HEENT History: Deaf in right ear, wears glasses Cardiovascular History: Reports: None Respiratory History: Reports: None Gastrointestinal History: Reports: Other (See Below) Other Gastrointestinal History: states has H pylori infection Genitourinary History: Reports: Other (See Below) 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: Musculoskeletal History: Reports: None Neurological History: Reports: None Psychiatric History: Reports: None Endocrine/Metabolic History: Reports: Obesity/BMI 30+ 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 Hematologic History: Reports: None Immunologic History: Reports: None Oncologic (Cancer) History: Reports: None Dermatologic History: Reports: None - Infectious Disease History Infectious Disease History: Reports: Chicken Pox, Mumps Other Infectious Disease History: when a child - Past Surgical History Head Surgeries/Procedures: Reports: None HEENT Surgical History: Reports: Tonsillectomy Cardiovascular Surgical History: Reports: None Other GI Surgeries/Procedures: states had an exploratory laparotomy in the past Female Surgical History: Reports: None, Section, Hysterectomy Other Female Surgeries/Procedures: laparoscopy for endometriosis Musculoskeletal Surgical History: Reports: None Social & Family History - Family History Family Medical History: No Pertinent Family History - Caffeine Use Caffeine Use: Reports: Coffee ED ROS GENERAL - Review of Systems Review Of Systems: See Below Constitutional: Reports: No Symptoms HEENT: Reports: No Symptoms Respiratory: Reports: No Symptoms Cardiovascular: Reports: No Symptoms Endocrine: Reports: No Symptoms GI/Abdominal: Reports: Abdominal Pain, Diarrhea : Reports: No Symptoms Musculoskeletal: Reports: No Symptoms Skin: Reports: No Symptoms Neurological: Reports: No Symptoms Psychiatric: Reports: No Symptoms Hematologic/Lymphatic: Reports: No Symptoms Immunologic: Reports: No Symptoms ED EXAM, GENERAL - Physical Exam Exam: See Below Exam Limited By: No Limitations General Appearance: Alert, WD/WN Head: Atraumatic Neck: Normal Inspection, Supple, Non-Tender Respiratory/Chest: No Respiratory Distress, Lungs Clear, Normal Breath Sounds Cardiovascular: Normal Peripheral Pulses, Regular Rate, Rhythm GI/Abdominal: Normal Bowel Sounds, Soft, Non-Tender Extremities: Normal Inspection Neurological: Alert, Oriented, Normal Cognition Course - Vital Signs Last Recorded V/S: Last Vital Signs Temp 97.5 F 03/23/20 00:10 Pulse 83 03/23/20 01:50 Resp 18 03/23/20 01:50 BP 99/52 L 03/23/20 01:50 Pulse Ox 98 03/23/20 01:50 - Orders/Labs/Meds Labs: Laboratory Tests 03/23/20 03/23/20 03/23/20 Range/Units 00:25 00:25 00:25 WBC 7.22 (4.0-11.0) K/uL RBC 4.46 (4.30-5.90) M/uL Hgb 13.2 (12.0-16.0) g/dL Hct 39.6 (36.0-46.0) % MCV 88.8 (80.0-98.0) fL MCH 29.6 (27.0-32.0) pg MCHC 33.3 (31.0-37.0) g/dL RDW Std Deviation 42.6 (28.0-62.0) fl RDW Coeff of Marcelle 13 (11.0-15.0) % Plt Count 197 (150-400) K/uL MPV 8.60 (7.40-12.00) fL Neut % (Auto) 65.1 (48.0-80.0) % Lymph % (Auto) 19.5 (16.0-40.0) % [place] % (Auto) 11.6 (0.0-15.0) % Eos % (Auto) 3.2 (0.0-7.0) % Baso % (Auto) 0.6 (0.0-1.5) % Neut # (Auto) 4.7 (1.4-5.7) K/uL Lymph # (Auto) 1.4 (0.6-2.4) K/uL [place] # (Auto) 0.8 (0.0-0.8) K/uL Eos # (Auto) 0.2 (0.0-0.7) K/uL Baso # (Auto) 0.0 (0.0-0.1) K/uL Lactate 0.9 (0.20-2.00) mmol/L Sodium 140 (136-145) mmol/L Potassium 4.0 (3.5-5.1) mmol/L Chloride 106 (98-107) mmol/L Carbon Dioxide 24.8 (21.0-32.0) mmol/L BUN 15 (7.0-18.0) mg/dL Creatinine 0.9 (0.6-1.0) mg/dL Est Cr Clr Drug Dosing TNP Estimated GFR (MDRD) > 60.0 ml/min Glucose 99 (74-106) mg/dL Calcium 8.8 (8.5-10.1) mg/dL Phosphorus 3.7 (2.6-4.7) mg/dL Magnesium 2.1 (1.8-2.4) mg/dL Total Bilirubin 0.3 (0.2-1.0) mg/dL AST 41 H (15-37) IU/L ALT 74 H (14-63) IU/L Alkaline Phosphatase 57 (46-116) U/L Creatine Kinase 164 (26-308) U/L Troponin I < 0.050 (0.000-0.056) ng/mL Total Protein 7.4 (6.4-8.2) g/dL Albumin 3.9 (3.4-5.0) g/dL Globulin 3.5 (2.6-4.0) g/dL Albumin/Globulin Ratio 1.1 (0.9-1.6) Lipase 215 (73-393) U/L Urine Color Urine Appearance Urine pH (5.0-8.0) Ur Specific [place] (1.001-1.035) Urine Protein (NEGATIVE) mg/dL Urine Glucose (UA) (NEGATIVE) mg/dL Urine Ketones (NEGATIVE) mg/dL Urine Occult Blood (NEGATIVE) Urine Nitrite (NEGATIVE) Urine Bilirubin (NEGATIVE) Urine Urobilinogen (<2.0) EU/dL Ur Leukocyte Esterase (NEGATIVE) Urine RBC (0-2/HPF) Urine WBC (0-5/HPF) Ur Epithelial Cells (NONE-FEW) Urine Bacteria (NEGATIVE) 03/23/20 Range/Units 01:15 WBC (4.0-11.0) K/uL RBC (4.30-5.90) M/uL Hgb (12.0-16.0) g/dL Hct (36.0-46.0) % MCV (80.0-98.0) fL MCH (27.0-32.0) pg MCHC (31.0-37.0) g/dL RDW Std Deviation (28.0-62.0) fl RDW Coeff of Marcelle (11.0-15.0) % Plt Count (150-400) K/uL MPV (7.40-12.00) fL Neut % (Auto) (48.0-80.0) % Lymph % (Auto) (16.0-40.0) % [place] % (Auto) (0.0-15.0) % Eos % (Auto) (0.0-7.0) % Baso % (Auto) (0.0-1.5) % Neut # (Auto) (1.4-5.7) K/uL Lymph # (Auto) (0.6-2.4) K/uL [place] # (Auto) (0.0-0.8) K/uL Eos # (Auto) (0.0-0.7) K/uL Baso # (Auto) (0.0-0.1) K/uL Lactate (0.20-2.00) mmol/L Sodium (136-145) mmol/L Potassium (3.5-5.1) mmol/L Chloride (98-107) mmol/L Carbon Dioxide (21.0-32.0) mmol/L BUN (7.0-18.0) mg/dL Creatinine (0.6-1.0) mg/dL Est Cr Clr Drug Dosing Estimated GFR (MDRD) ml/min Glucose (74-106) mg/dL Calcium (8.5-10.1) mg/dL Phosphorus (2.6-4.7) mg/dL Magnesium (1.8-2.4) mg/dL Total Bilirubin (0.2-1.0) mg/dL AST (15-37) IU/L ALT (14-63) IU/L Alkaline Phosphatase (46-116) U/L Creatine Kinase (26-308) U/L Troponin I (0.000-0.056) ng/mL Total Protein (6.4-8.2) g/dL Albumin (3.4-5.0) g/dL Globulin (2.6-4.0) g/dL Albumin/Globulin Ratio (0.9-1.6) Lipase (73-393) U/L Urine Color YELLOW Urine Appearance CLEAR Urine pH 7.0 (5.0-8.0) Ur Specific [place] 1.020 (1.001-1.035) Urine Protein NEGATIVE (NEGATIVE) mg/dL Urine Glucose (UA) NEGATIVE (NEGATIVE) mg/dL Urine Ketones NEGATIVE (NEGATIVE) mg/dL Urine Occult Blood MODERATE H (NEGATIVE) Urine Nitrite NEGATIVE (NEGATIVE) Urine Bilirubin NEGATIVE (NEGATIVE) Urine Urobilinogen 0.2 (<2.0) EU/dL Ur Leukocyte Esterase NEGATIVE (NEGATIVE) Urine RBC 0-3 (0-2/HPF) Urine WBC 0-1 (0-5/HPF) Ur Epithelial Cells RARE (NONE-FEW) Urine Bacteria RARE (NEGATIVE) Meds: Medications Discontinued Medications Generic Name Dose Route Start Last Admin Trade Name Freq PRN Reason Stop Dose Admin Al Hydroxide/Mg Hydroxide 15 0 ml 03/23/20 01:50 03/23/20 01:55 ml/ Lidocaine HCl 5 ml PO 03/23/20 01:51 20 each ONETIME ONE Administration Iopamidol 100 ml 03/23/20 01:15 12/27/20 01:18 Isovue Multipack-370 (76%) IVPUSH 03/23/20 01:16 100 ml ONETIME STA Administration Morphine Sulfate 4 mg 03/23/20 00:23 03/23/20 00:28 Morphine IVPUSH 03/23/20 00:24 4 mg ONETIME ONE Administration - Re-Assessments/Exams Free Text/Narrative Re-Assessment/Exam: 03/23/20 02:07 Patient CAT scan was reviewed essentially negative no finding for patient. Patient was given morphine upon arrival help some of the pain. Patient did request more morphine for pain however we spoke to patient that we had no findings on CAT scan or source of pain also her blood pressure has dropped from 120 down to the systolics of 90 likely due to the morphine. Patient labs lactate no white count. Will attempt other medications to control patient's pain due to blood pressure being lowered by morphine. Patient likely be discharged home and can follow-up with GI or general surgery as outpatient. Departure - Departure Time of Disposition: 02:09 Disposition: Home, Self-Care 01 Condition: Good Clinical Impression: Abdominal pain Qualifiers: Abdominal location: left upper quadrant Qualified Code(s): R10.12 - Left upper quadrant pain - Discharge Information *PRESCRIPTION DRUG MONITORING PROGRAM REVIEWED*: Not Applicable *COPY OF PRESCRIPTION DRUG MONITORING REPORT IN PATIENT VIOLETTE: Not Applicable Instructions: Abdominal Pain, Adult Referrals: Rafael Jones MD [Primary Care Provider] - Forms: ED Department Discharge Additional Instructions: The following information is given to patients seen in the emergency department who are being discharged to home. This information is to outline your options for follow-up care. We provide all patients seen in our emergency department with a follow-up referral. The need for follow-up, as well as the timing and circumstances, are variable depending upon the specifics of your emergency department visit. If you don't have a primary care physician on staff, we will provide you with a referral. We always advise you to contact your personal physician following an emergency department visit to inform them of the circumstance of the visit and for follow-up with them and/or the need for any referrals to a consulting specialist. The emergency department will also refer you to a specialist when appropriate. This referral assures that you have the opportunity for follow-up care with a specialist. All of these measure are taken in an effort to provide you with optimal care, which includes your follow-up. Under all circumstances we always encourage you to contact your private physician who remains a resource for coordinating your care. When calling for follow-up care, please make the office aware that this follow-up is from your recent emergency room visit. If for any reason you are refused follow-up, please contact the [facility] Emergency Department at and asked to speak to the emergency department charge nurse. Please follow up with your primary care physician. If you do not have a primary care physician, see below: [facility] [address] [place] [id number] [facility] [address] [place] [address] Please follow-up with your primary care physician. You can also continue to follow-up with your sample examiner or general surgery. Your CAT scan did not show any concerning findings or source of your pain. If you continue to have any abdominal pain or nausea vomiting please return to the emergency department. Sepsis Event Note (ED) - Evaluation Sepsis Screening Result: No Definite Risk - Focused Exam Vital Signs: Vital Signs Temp Pulse Resp BP Pulse Ox 03/23/20 01:50 83 18 99/52 L 98 03/23/20 00:10 97.5 F 94 18 125/96 H 96 - Assessment/Plan Assessment:: Patient is a 54-year-old female presents today for abdominal pain. Patient has left lower quadrant pain was different from her normal upper left quadrant pain. Will obtain labs CT scan and pain control.
[2020-03-23 00:54] LABS: BLOOD UREA NITROGEN,BUN 15 mg/dL (7.0-18.0); CARBON DIOXIDE,CO2 24.8 mmol/L (21.0-32.0); CHLORIDE,CL 106 mmol/L (98-107); GLUCOSE RANDOM 99 mg/dL (74-106); LIPASE 215 U/L (73-393); SODIUM,NA 140 mmol/L (136-145)
[2020-03-23] MEDS ORDERED: Iopamidol 755 MG/ML 500 ML Multipack Bottle IVPUSH STA (01:15)
[2020-03-23] MEDS ORDERED: Alum Hydrox/Mag Hydrox/Simeth 15 ML, Lidocaine 2% 5 ML PO ONE ×2 (01:50)
--- NOTE | 2020-03-23 02:05 | CT ---
HISTORY: Left-sided abdominal pain. COMPARISON: CT of the abdomen pelvis, 02/26/2020. TECHNIQUE: CT of the abdomen and pelvis. Coronal/sagittal reconstruction images. 100 cc of Isovue-370 IV. FINDINGS: Lung bases: There is no pleural or pericardial effusion. The heart size is normal. There is no basilar pneumothorax or acute airspace disease. Abdomen/pelvis: Diffuse hepatic steatosis. No solid hepatic mass. No radiopaque gallstone. Spleen size is normal. Benign left renal cysts. There is a left adrenal nodule, which measures 17 mm in dimension. There is also a fat containing mass in the right adrenal gland measuring 5.4 cm in dimension. This may represent a myelolipoma. A 3rd left adrenal gland mass measuring 12 mm is unchanged. There is no pancreatic mass or pancreatic duct dilation. No glandular atrophy. Uterus appears surgically absent. There is no adnexal mass. There is no wall thickening in the small bowel or colon. There is no perienteric edema. There is no pneumatosis or portal venous gas. No evidence for appendicitis. No pelvic sidewall lymphadenopathy. The retroperitoneum and gastrohepatic ligament are normal. Non aneurysmal abdominal aorta. The bone windows demonstrate a benign bone island in the left proximal femur. There are no suspicious bone lesions by CT. 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 There is no significant anterolisthesis. IMPRESSION: 1. Bilateral adrenal gland nodules are unchanged. Largest is likely a myelolipoma. 2. Diffuse hepatic steatosis. Non cirrhotic liver morphology. 3. No acute findings are seen to explain abdominal pain. Please note that all CT scans at this facility use dose modulation, iterative reconstruction, and/or weight-based dosing when appropriate to reduce radiation dose to as low as reasonably achievable. Dictated by Riky Acosta MD @ Mar 23 2020 1:58AM Signed by Dr. Riky Acosta @ Mar 23 2020 2:03AM
== END 2020-03-23 02:12 | disposition home or self-care (01) ==
LOC: MW.ED 00:01
DX: R10.12 Left upper quadrant pain (principal); E66.9 Obesity, unspecified; Z79.899 Other long term (current) drug therapy
CPT/HCPCS: 36415; 74177; 80053; 81001; 82550; 83605; 83690; 83735; 84100; 84484; 85025; 96374; 99284; A9270; J2270; Q9967; 99283